=== PATIENT | female | born 1985 | race Caucasian/White ===

== ENCOUNTER 2020-06-08 09:26 | Outpatient (REF) | payer OTHER, SELFPAY ==
[2020-06-08 09:49] LABS: Basophils Absolute Auto 0.1 X10*3/uL (0.0-0.2); Basophils Percent Auto 0.7 % (0-2); Eosinophils Percent Auto 0.2 % (0-4); Hematocrit 43.9 % (37-47); Hemoglobin 14.7 g/dl (12.0-16.0); Imm Gran Abs Auto 0.03 X10*3/uL (0.00-0.03); Imm Gran Pct Auto 0.3 % (0.0-0.4); Lymphocytes Absolute Auto 1.9 X10*3/uL (1.2-4.9); Lymphocytes Percent Auto 17.9 % (20-40); MANUAL DIFF FLAG NO; Mean Corpuscular HGB Conc 33.5 g/dl (31.0-35.0); Mean Corpuscular Volume 83.6 fL (80-98); Mean Platelet Volume 8.8 fL (9.4-12.3); Monocytes Absolute Auto 0.3 X10*3/uL (0.1-1.2); Monocytes Percent Auto 3.2 % (2-11); Neutrophils Absolute Auto 8.3 X10*3/uL (2.0-8.3); Neutrophils Percent Auto 77.7 % (45-73); Platelet Count 339 X10*3/uL (160-400); Red Blood Count 5.25 X10*6/uL (4.20-5.50); Red Cell Distribution Width 12.5 % (11.0-16.0); White Blood Count 10.7 X10*3/uL (4.8-10.8)
[2020-06-08 10:39] LABS: Alanine Aminotransferase 14 U/L (0-31); Albumin Level 4.6 g/dL (3.5-5.0); Alkaline Phosphatase 74 U/L (39-117); Anion Gap 14 (12-20); Aspartate Amino Transferase 12 U/L (5-31); Bilirubin Total 1.1 mg/dL (0.0-1.0); Blood Urea Nitrogen 14 mg/dL (9-16); Calcium 9.8 mg/dL (8.4-10.2); Carbon Dioxide 24 mmol/L (22-29); Chloride 105 mmol/L (96-108); Cholesterol 194 mg/dL; Estimated Glomerular Filt Rate > 60; Glucose Fasting 123 mg/dL (60-99); HDL Cholesterol 56 mg/dL; LDL Cholesterol Calculated 117 mg/dl; Potassium 4.6 mmol/l (3.3-5.1); Sodium 138 mmol/L (135-145); Total Protein 7.4 g/dL (6.5-8.0); Triglycerides 105 mg/dL
[2020-06-08 11:00] LABS: T4 Thyroxine 9.2 ug/dL (4.5-12.0); Vitamin D 25-OH Total 30.4 ng/mL (>30)
[2020-06-08 11:14] LABS: Folate 19.1 ng/mL (> or = 4.0); Vitamin B12 420 pg/mL (200-900)
== END 2020-06-08 09:27 | disposition home or self-care (01) ==
LOC: HO.LAB 09:26
PROVIDERS: PCP Internal Medicine; Visit Provider Internal Medicine
DX: Z00.00 Encounter for general adult medical examination without abnormal findings (principal); F41.9 Anxiety disorder, unspecified; G43.909 Migraine, unspecified, not intractable, without status migrainosus; E66.9 Obesity, unspecified; G47.00 Insomnia, unspecified
CPT/HCPCS: 36415; 80053; 80061; 82306; 82533; 82607; 82746; 84436; 84443; 85025

== ENCOUNTER 2020-11-09 07:44 | Outpatient (REF) | payer OTHER, SELFPAY ==
--- NOTE | ~2020-11-09 | US_ITS ---
EXAMINATION: US ABDOMEN LIMITED CLINICAL INFORMATION: Other specified abnormal findings of blood chemistry. I flank pain. Evaluate for kidney stones. COMPARISON: Ultrasound abdomen complete 08/10/2018 and 09/13/2014. TECHNIQUE: Real-time imaging of the right upper quadrant abdominal viscera. FINDINGS: PANCREAS: Normal. LIVER: The liver is normal in size. The liver contour is normal. Parenchymal echogenicity is within normal limits. No focal hepatic lesion. There is no intrahepatic biliary duct dilatation seen. GALLBLADDER: Surgically absent. COMMON BILE DUCT: Normal in caliber measuring 0.3 cm in diameter. RIGHT KIDNEY: Normal. No hydronephrosis. No renal calculi or focal parenchymal lesions. The kidney measures 10.5 cm in maximum dimension. FREE FLUID: None. US/US abdomen limited IMPRESSION: Status post cholecystectomy. Otherwise normal right upper quadrant ultrasound. No right-sided hydronephrosis or nephrolithiasis.
[2020-11-09 09:13] LABS: MANUAL DIFF FLAG NO
[2020-11-09 09:26] LABS: Basophils Absolute Auto 0.1 X10*3/uL (0.0-0.2); Basophils Percent Auto 0.9 % (0-2); Eosinophils Absolute Auto 0.2 X10*3/uL (0.0-0.4); Hematocrit 39.6 % (37-47); Imm Gran Abs Auto 0.03 X10*3/uL (0.00-0.03); Imm Gran Pct Auto 0.4 % (0.0-0.4); Lymphocytes Absolute Auto 2.5 X10*3/uL (1.2-4.9); Lymphocytes Percent Auto 31.8 % (20-40); Mean Corpuscular HGB Conc 32.8 g/dl (31.0-35.0); Mean Corpuscular Hemoglobin 27.5 pg (27.0-33.0); Mean Corpuscular Volume 83.9 fL (80-98); Mean Platelet Volume 9.5 fL (9.4-12.3); Monocytes Absolute Auto 0.6 X10*3/uL (0.1-1.2); Monocytes Percent Auto 6.9 % (2-11); Neutrophils Absolute Auto 4.5 X10*3/uL (2.0-8.3); Platelet Count 313 X10*3/uL (160-400); Red Blood Count 4.72 X10*6/uL (4.20-5.50); Red Cell Distribution Width 13.1 % (11.0-16.0)
[2020-11-09 09:31] LABS: Alanine Aminotransferase 14 U/L (0-31); Albumin Level 4.2 g/dL (3.5-5.0); Alkaline Phosphatase 71 U/L (39-117); Anion Gap 13 (12-20); Aspartate Amino Transferase 14 U/L (5-31); Bilirubin Total 1.1 mg/dL (0.0-1.0); Blood Urea Nitrogen 10 mg/dL (9-16); Calcium 9.1 mg/dL (8.4-10.2); Carbon Dioxide 21 mmol/L (22-29); Chloride 108 mmol/L (96-108); Cholesterol 139 mg/dL; Estimated Glomerular Filt Rate > 60; Glucose Random 111 mg/dL (60-115); HDL Cholesterol 40 mg/dL; LDL Cholesterol Calculated 67 mg/dl; Potassium 4.4 mmol/L (3.3-5.1); Sodium 138 mmol/L (135-145); Total Protein 6.6 g/dL (6.5-8.0); Triglycerides 162 mg/dL
[2020-11-09 09:50] LABS: Glucose Urine UA NEG (NEG); Leukocyte Esterase Urine NEG (NEG); Nitrite Urine NEG (NEG); Specific Gravity - Urine >= 1.030 (1.005-1.025); Urine Blood TRACE (NEG); Urine Ketones NEG (NEG); Urine Protein NEG (NEG-TRACE)
[2020-11-09 09:53] LABS: Thyroid Stimulating Hormone 2.04 uIU/mL (0.32-4.0)
[2020-11-09 09:53] LABS: Appearance Urine HAZY; Color Urine YELLOW
[2020-11-09 09:54] LABS: Estimated Average Glucose 94 mg/dL; Hemoglobin A1c % 4.9 %
[2020-11-09 10:00] LABS: Bacteria Urine 3+ /LPF; RBC Urine 0-2 /HPF (0); Squamous Epithelial Cell Urine 2+ /LPF; WBC Urine 0-2 /HPF (0-4)
== END 2020-11-09 07:45 | disposition home or self-care (01) ==
LOC: HO.US 07:44
PROVIDERS: Visit Provider Internal Medicine
DX: R10.11 Right upper quadrant pain (principal); R79.89 Other specified abnormal findings of blood chemistry; R73.02 Impaired glucose tolerance (oral); E78.00 Pure hypercholesterolemia, unspecified
CPT/HCPCS: 36415; 76705; 80053; 80061; 81001; 83036; 84443; 85025

== ENCOUNTER 2021-04-23 08:32 | Outpatient (REF) | payer OTHER, SELFPAY ==
--- NOTE | ~2021-04-23 | XR_ITS ---
EXAMINATION: XR ANKLE, LEFT XR, FOOT, LEFT CLINICAL INFORMATION: Trauma, sprain, pain COMPARISON: None TECHNIQUE: 2 views left ankle and 2 views of the left foot are obtained. A lateral view of the combined ankle and foot in large [id number] is also included for a total of 5 views. FINDINGS: The ankle shows no fracture or dislocation or arthropathy. The malleoli appear intact and the ankle mortise is symmetric. Talar dome shows no osteochondral lesion or visible capsular effusion. The retrocalcaneal recess is preserved. There are posterior and plantar calcaneal spurs. Subtalar joint not well visualized likely related to patient positioning. There is mild spurring from the proximal dorsal talonavicular. The midfoot and forefoot show no fracture or dislocation or arthropathy. XR/XR ankle LT min 3V IMPRESSION: No fracture, dislocation, or arthropathy. Posterior and plantar calcaneal spurs.
--- NOTE | ~2021-04-23 | XR_ITS ---
EXAMINATION: XR ANKLE, LEFT XR, FOOT, LEFT CLINICAL INFORMATION: Trauma, sprain, pain COMPARISON: None TECHNIQUE: 2 views left ankle and 2 views of the left foot are obtained. A lateral view of the combined ankle and foot in large [id number] is also included for a total of 5 views. FINDINGS: The ankle shows no fracture or dislocation or arthropathy. The malleoli appear intact and the ankle mortise is symmetric. Talar dome shows no osteochondral lesion or visible capsular effusion. The retrocalcaneal recess is preserved. There are posterior and plantar calcaneal spurs. Subtalar joint not well visualized likely related to patient positioning. There is mild spurring from the proximal dorsal talonavicular. The midfoot and forefoot show no fracture or dislocation or arthropathy. XR/XR foot LT min 3V IMPRESSION: No fracture, dislocation, or arthropathy. Posterior and plantar calcaneal spurs.
== END 2021-04-23 08:33 | disposition home or self-care (01) ==
LOC: HO.HMGCX 08:32
PROVIDERS: PCP Internal Medicine; Visit Provider Internal Medicine
DX: S93.402A Sprain of unspecified ligament of left ankle, initial encounter (principal); X58.XXXA Exposure to other specified factors, initial encounter; Y93.9 Activity, unspecified; Y92.9 Unspecified place or not applicable; Y99.9 Unspecified external cause status
CPT/HCPCS: 73610; 73630

== ENCOUNTER 2021-09-24 12:13 | Outpatient (REF) | payer OTHER, SELFPAY ==
[2021-09-24 12:33] LABS: MANUAL DIFF FLAG NO
[2021-09-24 12:58] LABS: Basophils Absolute Auto 0.1 X10*3/uL (0.0-0.2); Basophils Percent Auto 0.6 % (0-2); Eosinophils Absolute Auto 0.1 X10*3/uL (0.0-0.4); Eosinophils Percent Auto 0.7 % (0-4); Hematocrit 40.8 % (37.0-47.0); Hemoglobin 13.3 g/dl (12.0-16.0); Imm Gran Abs Auto 0.02 X10*3/uL (0.00-0.03); Imm Gran Pct Auto 0.2 % (0.0-0.4); Lymphocytes Absolute Auto 1.9 X10*3/uL (1.2-4.9); Lymphocytes Percent Auto 19.3 % (20-40); Mean Corpuscular HGB Conc 32.6 g/dl (31.0-35.0); Mean Corpuscular Hemoglobin 29.7 pg (27.0-33.0); Mean Corpuscular Volume 91.1 fL (80.0-98.0); Mean Platelet Volume 9.4 fL (9.4-12.3); Monocytes Absolute Auto 0.5 X10*3/uL (0.1-1.2); Monocytes Percent Auto 5.1 % (2-11); Neutrophils Absolute Auto 7.3 x10*3/uL (2.0-8.3); Neutrophils Percent Auto 74.1 % (45-73); Platelet Count 338 X10*3/uL (160-400); Red Blood Count 4.48 X10*6/uL (4.20-5.50); Red Cell Distribution Width 13.2 % (11.0-16.0); White Blood Count 9.9 X10*3/uL (4.8-10.8)
[2021-09-24 13:23] LABS: Alanine Aminotransferase 12 U/L (0-31); Albumin Level 4.2 g/dL (3.5-5.0); Alkaline Phosphatase 72 U/L (39-117); Anion Gap 12 (12-20); Aspartate Amino Transferase 14 U/L (5-31); Bilirubin Total 0.9 mg/dL (0.0-1.0); Blood Urea Nitrogen 10 mg/dL (9-16); Calcium 9.8 mg/dL (8.4-10.2); Carbon Dioxide 24 mmol/L (22-29); Chloride 107 mmol/L (96-108); Estimated Glomerular Filt Rate > 60; Glucose Random 96 mg/dL (60-115); Potassium 4.7 mmol/L (3.3-5.1); Sodium 138 mmol/L (135-145); Total Protein 6.8 g/dL (6.5-8.0)
== END 2021-09-24 12:14 | disposition home or self-care (01) ==
LOC: HO.LAB 12:13
PROVIDERS: PCP Internal Medicine; Visit Provider Internal Medicine
DX: L70.9 Acne, unspecified (principal)
CPT/HCPCS: 36415; 80053; 85025

== ENCOUNTER 2021-12-24 07:47 | Outpatient (REF) | payer OTHER, SELFPAY ==
[2021-12-24 08:12] LABS: MANUAL DIFF FLAG NO
[2021-12-24 08:21] LABS: Basophils Absolute Auto 0.1 X10*3/uL (0.0-0.2); Basophils Percent Auto 0.8 % (0-2); Eosinophils Absolute Auto 0.1 X10*3/uL (0.0-0.4); Eosinophils Percent Auto 0.9 % (0-4); Hematocrit 38.5 % (37.0-47.0); Hemoglobin 12.8 g/dl (12.0-16.0); Imm Gran Abs Auto 0.03 X10*3/uL (0.00-0.03); Imm Gran Pct Auto 0.3 % (0.0-0.4); Lymphocytes Percent Auto 32.6 % (20-40); Mean Corpuscular HGB Conc 33.2 g/dl (31.0-35.0); Mean Corpuscular Hemoglobin 29.3 pg (27.0-33.0); Mean Corpuscular Volume 88.1 fL (80.0-98.0); Mean Platelet Volume 8.9 fL (9.4-12.3); Monocytes Absolute Auto 0.7 X10*3/uL (0.1-1.2); Monocytes Percent Auto 7.4 % (2-11); Neutrophils Absolute Auto 5.4 x10*3/uL (2.0-8.3); Platelet Count 318 X10*3/uL (160-400); Red Blood Count 4.37 X10*6/uL (4.20-5.50); White Blood Count 9.3 X10*3/uL (4.8-10.8)
[2021-12-24 08:42] LABS: Alanine Aminotransferase 16 U/L (0-31); Albumin Level 4.5 g/dL (3.5-5.0); Alkaline Phosphatase 67 U/L (39-117); Anion Gap 14 (12-20); Aspartate Amino Transferase 16 U/L (5-31); Bilirubin Total 2.1 mg/dL (0.0-1.0); Blood Urea Nitrogen 16 mg/dL (9-16); Calcium 9.4 mg/dL (8.4-10.2); Carbon Dioxide 23 mmol/L (22-29); Chloride 104 mmol/L (96-108); Estimated Glomerular Filt Rate > 60; Glucose Random 90 mg/dL (60-115); Potassium 3.9 mmol/L (3.3-5.1); Sodium 137 mmol/L (135-145)
[2021-12-24 09:05] LABS: Free T4 (Free Thyroxine) 1.41 ng/dL (0.71-1.85); Thyroid Stimulating Hormone 1.91 uIU/mL (0.32-4.0)
== END 2021-12-24 07:48 | disposition home or self-care (01) ==
LOC: HO.LAB 07:47
PROVIDERS: PCP Internal Medicine; Visit Provider Internal Medicine
DX: L70.9 Acne, unspecified (principal)
CPT/HCPCS: 36415; 80053; 84439; 84443; 85025

== ENCOUNTER 2022-02-25 07:21 | Outpatient (REF) | payer OTHER, SELFPAY ==
[2022-02-25 07:33] LABS: MANUAL DIFF FLAG NO
[2022-02-25 08:10] LABS: Basophils Absolute Auto 0.1 X10*3/uL (0.0-0.2); Basophils Percent Auto 0.9 % (0-2); Eosinophils Absolute Auto 0.2 X10*3/uL (0.0-0.4); Eosinophils Percent Auto 1.9 % (0-4); Hematocrit 41.2 % (37.0-47.0); Hemoglobin 13.5 g/dl (12.0-16.0); Imm Gran Abs Auto 0.03 X10*3/uL (0.00-0.03); Imm Gran Pct Auto 0.3 % (0.0-0.4); Lymphocytes Absolute Auto 2.9 X10*3/uL (1.2-4.9); Lymphocytes Percent Auto 31.3 % (20-40); Mean Corpuscular HGB Conc 32.8 g/dl (31.0-35.0); Mean Corpuscular Volume 88.6 fL (80.0-98.0); Monocytes Absolute Auto 0.6 X10*3/uL (0.1-1.2); Neutrophils Absolute Auto 5.3 x10*3/uL (2.0-8.3); Neutrophils Percent Auto 58.6 % (45-73); Platelet Count 326 X10*3/uL (160-400); Red Blood Count 4.65 X10*6/uL (4.20-5.50); Red Cell Distribution Width 13.2 % (11.0-16.0); White Blood Count 9.1 X10*3/uL (4.8-10.8)
[2022-02-25 08:48] LABS: Alanine Aminotransferase 15 U/L (0-31); Albumin Level 4.3 g/dL (3.5-5.0); Alkaline Phosphatase 67 U/L (39-117); Anion Gap 16 (12-20); Aspartate Amino Transferase 13 U/L (5-31); Bilirubin Direct 0.3 mg/dL (0.0-0.5); Bilirubin Total 0.9 mg/dL (0.0-1.0); Blood Urea Nitrogen 10 mg/dL (9-16); Calcium 9.2 mg/dL (8.4-10.2); Carbon Dioxide 24 mmol/L (22-29); Chloride 102 mmol/L (96-108); Estimated Glomerular Filt Rate > 60; Glucose Random 98 mg/dL (60-115); Lactate Dehydrogenase 156 U/L (122-220); Potassium 4.6 mmol/L (3.3-5.1); Sodium 137 mmol/L (135-145); Total Protein 6.8 g/dL (6.5-8.0)
[2022-02-27 14:42] LABS: Haptoglobin 173 mg/dL (43-212)
== END 2022-02-25 07:22 | disposition home or self-care (01) ==
LOC: HO.LAB 07:21
PROVIDERS: PCP Internal Medicine; Visit Provider Internal Medicine
DX: E80.6 Other disorders of bilirubin metabolism (principal); R79.89 Other specified abnormal findings of blood chemistry
CPT/HCPCS: 36415; 80053; 82248; 83010; 83615; 85025

== ENCOUNTER 2022-03-18 13:04 | Outpatient (REF) | payer OTHER, SELFPAY ==
--- NOTE | ~2022-03-18 | CT_ITS ---
EXAMINATION: CT OF THE HEAD WITHOUT CONTRAST CLINICAL INFORMATION: Headache COMPARISON: None. TECHNIQUE: Contiguous axial imaging was performed from the skull base to vertex without intravenous administration of contrast. This CT examination was performed using dose optimization techniques as appropriate, variously including the following: *Automated exposure control *Adjustment of mA and/or kV according to patient size (this includes techniques or standardized protocols for targeted exams where dose is matched to indication/reason for exam; i.e. extremities or head) *Use of iterative reconstruction technique [id number] FINDINGS: There is streak artifact in the posterior fossa particularly in the region of the basilar artery. No acute intracranial hemorrhage. No extra-axial fluid collection. Monroe-white matter differentiation is preserved without evidence of acute large vessel territory ischemia. Symmetric, concordant ventricles and sulci; no hydrocephalus. No mass effect or midline shift. There is no abnormal attenuation within the brain parenchyma. The osseous structures and soft tissues are normal. No acute sinusitis. CT/CT head/brain wo IV con IMPRESSION: No acute intracranial pathology.
--- NOTE | ~2022-03-18 | XR_ITS ---
EXAMINATION: XR CERVICAL SPINE CLINICAL INFORMATION: Headache, unspecified COMPARISON: None TECHNIQUE: 3 views of the cervical spine were obtained. FINDINGS: There is anatomic alignment of the vertebral bodies and posterior elements. Vertebral body heights and intervertebral disc spaces are maintained. No evidence of acute fracture. No prevertebral soft tissue swelling. XR/XR cervical spine 2V IMPRESSION: No acute findings or significant degenerative changes.
== END 2022-03-18 13:05 | disposition home or self-care (01) ==
LOC: HO.CT 13:04
PROVIDERS: PCP Internal Medicine; Visit Provider Internal Medicine
DX: R51.9 Headache, unspecified (principal)
CPT/HCPCS: 70450; 72040

== ENCOUNTER 2022-10-03 09:33 | Outpatient (REF) | payer OTHER, SELFPAY ==
--- NOTE | ~2022-10-03 | US_ITS ---
EXAMINATION: US ABDOMEN COMPLETE CLINICAL INFORMATION: Other specified abnormal findings of blood chemistry. COMPARISON: Limited abdominal ultrasound 11/09/2020. Ultrasound abdomen 08/10/2018. TECHNIQUE: Real-time imaging of the abdominal viscera. FINDINGS: PANCREAS: The pancreas appears unremarkable, without masses or ductal dilatation, with the exception of the tail which is obscured by bowel gas. ABDOMINAL AORTA: The proximal, mid, and distal segments are normal in caliber. INFERIOR VENA CAVA: Visualized portions are normal. LIVER: The liver is normal in size. The liver contour is normal. There is diffuse increased liver parenchymal echogenicity, consistent with hepatic steatosis. No focal hepatic lesion. There is no intrahepatic biliary duct dilatation seen. GALLBLADDER: Surgically absent. COMMON BILE DUCT: Normal in caliber measuring 0.4 cm in diameter. RIGHT KIDNEY: Normal. No hydronephrosis. No renal calculi or focal parenchymal lesions. The kidney measures 11.1 cm in maximum dimension. LEFT KIDNEY: Normal. No hydronephrosis. No renal calculi or focal parenchymal lesions. The kidney measures 9.7 cm in maximum dimension. SPLEEN: Normal.The spleen measures 8.8 cm in maximum dimension. FREE FLUID: None. US/US abdomen complete IMPRESSION: Hepatic steatosis.
== END 2022-10-03 09:34 | disposition home or self-care (01) ==
LOC: HO.US 09:33
PROVIDERS: PCP Internal Medicine; Visit Provider Internal Medicine
DX: R79.89 Other specified abnormal findings of blood chemistry (principal); Z90.49 Acquired absence of other specified parts of digestive tract
CPT/HCPCS: 76700

== ENCOUNTER 2023-02-27 20:44 | Emergency (ER) | payer OTHER, SELFPAY ==
--- NOTE | 2023-02-27 20:46 | ECG_ITS ---
Test Reason : CP Blood Pressure : / mmHG Vent. Rate : 068 BPM Atrial Rate : 068 BPM P-R Int : 152 ms QRS Dur : 072 ms QT Int : 388 ms P-R-T Axes : 044 -10 -29 degrees QTc Int : 412 ms Normal sinus rhythm with sinus arrhythmia Nonspecific T wave abnormality Abnormal ECG No previous ECGs available Referred By: Deja Adan Electronically Signed By:Micheal Ramirez
[2023-02-27 21:26] VITALS: BP 129/99; PULSE 79; RESP 18; TEMP 36.8; O2SAT 98; BMI 31.9
[2023-02-27 22:12] LABS: MANUAL DIFF FLAG NO
[2023-02-27 22:16] LABS: Basophils Absolute Auto 0.1 X10*3/uL (0.0-0.2); Basophils Percent Auto 0.7 % (0-2); Eosinophils Absolute Auto 0.1 X10*3/uL (0.0-0.4); Eosinophils Percent Auto 0.9 % (0-4); Hematocrit 45.1 % (37.0-47.0); Hemoglobin 15.2 g/dl (12.0-16.0); Imm Gran Abs Auto 0.03 X10*3/uL (0.00-0.03); Imm Gran Pct Auto 0.3 % (0.0-0.4); Lymphocytes Absolute Auto 2.6 X10*3/uL (1.2-4.9); Lymphocytes Percent Auto 26.7 % (20-40); Mean Corpuscular HGB Conc 33.7 g/dl (31.0-35.0); Mean Corpuscular Hemoglobin 29.6 pg (27.0-33.0); Mean Corpuscular Volume 87.7 fL (80.0-98.0); Mean Platelet Volume 9.2 fL (9.4-12.3); Monocytes Absolute Auto 0.7 X10*3/uL (0.1-1.2); Monocytes Percent Auto 6.7 % (2-11); Neutrophils Absolute Auto 6.2 x10*3/uL (2.0-8.3); Neutrophils Percent Auto 64.7 % (45-73); Platelet Count 380 X10*3/uL (160-400); Red Blood Count 5.14 X10*6/uL (4.20-5.50); Red Cell Distribution Width 12.4 % (11.0-16.0); White Blood Count 9.6 X10*3/uL (4.8-10.8)
[2023-02-27 22:30] LABS: Alanine Aminotransferase 11 U/L (0-31); Albumin Level 4.7 g/dL (3.5-5.0); Alkaline Phosphatase 64 U/L (39-117); Anion Gap 13 (12-20); Aspartate Amino Transferase 14 U/L (5-31); Bilirubin Total 1.8 mg/dL (0.0-1.0); Blood Urea Nitrogen 13 mg/dL (9-16); Calcium 11.2 mg/dL (8.4-10.2); Carbon Dioxide 28 mmol/L (22-29); Chloride 103 mmol/L (96-108); Creatinine Clr Calc Pharmacy 80.2; Estimated Glomerular Filt Rate > 60; Glucose Random 98 mg/dL (60-115); Potassium 4.5 mmol/L (3.3-5.1); Sodium 139 mmol/L (135-145); Total Protein 7.8 g/dL (6.5-8.0)
[2023-02-27 22:36] LABS: D Dimer High Sensitivity < 150 NG/ML
[2023-02-27 22:43] LABS: Troponin-I High Sensitivity < 2.7 ng/L (<3.5-17.0)
[2023-02-27 23:31] VITALS: BP 152/96; PULSE 85; RESP 16; TEMP 36.8; O2SAT 100
--- NOTE | 2023-02-28 00:35 | ED.CHESTPAIN ---
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 complaining of calf pain worried about that she might have PE on arrival patient pulse ox 100% at room air patient is on control pills and worried that she might have PE no cough Related Data Home Medications Medication Instructions Recorded Confirmed albuterol sulfate 90 mcg/actuation 2 puff PO QID PRN 06/07/20 02/25/22 aerosol inhaler norethindrone (contraceptive) 0.35 0 mg PO 05/05/21 02/25/22 mg tablet (Incassia) Previous Rx's Medication Instructions Recorded cholestyramine-aspartame 4 gram 4 g PO QIDACHS #60 ea 03/05/21 oral powder for susp in a packet (Prevalite) sumatriptan succinate 50 mg tablet 50 mg PO .QD PRN migraine headache 03/15/21 (Imitrex) #14 tabs eflornithine 13.9 % topical cream 1 appl topical BID #45 grams 09/25/21 (Vaniqa) magnesium oxide 400 mg PO DAILY #30 tabs 05/28/22 polymyxin B sulfate 10,000 1 drp ophthalmic-Left Q3H 7 days 05/28/22 unit-trimethoprim 1 mg/mL eye #10 mL drops (Polytrim) erythromycin 5 mg/gram (0.5 %) eye 0.5 inch ophthalmic (eye) TID #3.5 05/30/22 ointment grams tobramycin 0.3 %-dexamethasone 0.1 1 drp ophthalmic (eye) 6XD #5 mL 05/30/22 % eye drops,suspension metformin 500 mg tablet 500 mg PO BID 90 days #180 tabs 07/03/22 alprazolam 0.25 mg tablet 0.25 mg PO DAILY PRN anxiety #14 08/26/22 tabs valacyclovir 500 mg tablet 500 mg PO DAILY 30 days #90 tabs 03/09/23 propranolol 10 mg tablet 10 mg PO BID #180 tabs 11/03/22 spironolactone 100 mg tablet 100 mg PO DAILY 30 days #90 tabs 11/03/22 zolpidem 5 mg tablet 5 mg PO BEDTIME PRN insomnia 30 02/21/23 days #30 tabs prochlorperazine maleate 10 mg 10 mg PO TID PRN nausea and 02/28/23 tablet (Compazine) vomiting #10 tabs Allergies Allergy/AdvReac Type Severity Reaction Status Date / Time adhesive [ADHESIVE] Allergy Unknown RED RASH Verified 12/13/22 10:09 ITCH minocycline [MINOCYCLINE] Allergy Unknown HIVES Verified 12/13/22 10:09 omeprazole [From Prilosec] Allergy Unknown headache Verified 12/13/22 10:09 Penicillins [PENICILLINS] Allergy Unknown HIVES Verified 12/13/22 10:09 ondansetron AdvReac Unknown HIVES Verified 12/13/22 10:09 [From ZOFRAN ( HYDROCHLORIDE)] Review of Systems Review of Systems: Yes all other systems are reviewed and are negative [facility] Past Medical History Medical History Anxiety Asthma Fatty liver Insomnia Migraine Obesity (BMI 30-39.9) PCOS (polycystic ovarian syndrome) Surgical History History of ankle surgery History of cholecystectomy History of hemorrhoidectomy History of placement of ear tubes History of wisdom tooth extraction Family History Family History Father Rock's disease Diabetes Hypertension Depression Mother No problems noted. Maternal Grandmother Cancer Depression Leukemia Maternal Grandfather Atherosclerosis CAD (coronary artery disease) Family/Other Alcoholism Social History Social History Housing: House Alcohol intake: current Alcohol intake frequency: holidays/special occasions only Patient Tobacco Use Status: Never used Tobacco e-Cigarette/Vaping Use: Never Used Second Hand Smoke Exposure: No Advance Directives: No Advance Directives Information Provided: Yes service: No Current occupational status: employed Cognitive needs: No Hearing needs: No Vision needs: Yes Physical Exam Vital Signs: Vital Signs: Last Vital Signs Temp 98.6 F 02/28/23 00:38 Pulse 56 02/28/23 00:38 Resp 16 02/28/23 00:38 BP 144/99 H 02/28/23 00:38 Pulse Ox 100 02/27/23 23:31 O2 Del Method Room Air 02/28/23 00:38 BMI result Body Mass Index 31.9 Appearance: Alert. Oriented X3. No acute distress. Anxious Eyes: PERRLA, No Nystagmus ENT: Pharynx normal. Oral Mucosa moist Neck: Normal inspection. Neck supple. CVS: Normal heart rate and rhythm. Pulses normal. Respiratory: No respiratory distress. Equal air entry bilateral, no wheezing/rales/rhonchi Abdomen: Soft and nontender. Bowel sounds are present, no mass palpable, no CVA tenderness Skin: Skin warm and dry. Normal skin color. Normal skin turgor. Extremities: No lower extremity edema. No calf tenderness Neuro: Oriented X 3. No motor deficit. No sensory deficit.No cerebellar signs , cranial nerves II-XII intact Medical Decision Making Medical Decision Making MDM Narrative: Patient with atypical chest pain for last 5 days normal EKG normal troponin normal high sensitive D-dimer clinically patient seems very anxious multiple complaints patient advised to follow with PCP/cardiology/licensed vocational nurse Differential Diagnosis Differential Diagnoses: The differential diagnosis associated with the presentation includes ACS/PE/anxiety/GERD Lab Data [facility] Lab Attestation statement: I reviewed the patient's lab results. 02/27/23 22:07 02/27/23 22:07 Labs: Lab Results 02/27/23 02/27/23 02/27/23 Range/Units 22:07 22:07 22:07 WBC 9.6 (4.8-10.8) X10*3/uL RBC 5.14 (4.20-5.50) X10*6/uL Hgb 15.2 (12.0-16.0) g/dl Hct 45.1 (37.0-47.0) % MCV 87.7 (80.0-98.0) fL MCH 29.6 (27.0-33.0) pg MCHC 33.7 (31.0-35.0) g/dl RDW 12.4 (11.0-16.0) % Plt Count 380 (160-400) X10*3/uL MPV 9.2 L (9.4-12.3) fL Immature Gran % (Auto) 0.3 (0.0-0.4) % Neut % (Auto) 64.7 (45-73) % Lymph % (Auto) 26.7 (20-40) % Webb % (Auto) 6.7 (2-11) % Eos % (Auto) 0.9 (0-4) % Baso % (Auto) 0.7 (0-2) % Lymph # (Auto) 2.6 (1.2-4.9) X10*3/uL Webb # (Auto) 0.7 (0.1-1.2) X10*3/uL Eos # (Auto) 0.1 (0.0-0.4) X10*3/uL Baso # (Auto) 0.1 (0.0-0.2) X10*3/uL Abs Immat Gran (auto) 0.03 (0.00-0.03) X10*3/uL Absolute Neuts (auto) 6.2 (2.0-8.3) x10*3/uL Absolute Nucleated RBC 0.000 (0.0-0.012) X10*3/uL Nucleated RBC % (auto) 0.0 (0.0-0.2) /100WBC D-Dimer High Sensitivty < 150 NG/ML Sodium 139 (135-145) mmol/L Potassium 4.5 (3.3-5.1) mmol/L Chloride 103 (96-108) mmol/L Carbon Dioxide 28 (22-29) mmol/L Anion Gap 13 (12-20) BUN 13 (9-16) mg/dL Creatinine 1.00 (0.5-1.4) mg/dL Estim Creat Clear Calc 80.2 Estimated GFR > 60 Random Glucose 98 (60-115) mg/dL Calcium 11.2 H D (8.4-10.2) mg/dL Total Bilirubin 1.8 H (0.0-1.0) mg/dL AST 14 (5-31) U/L ALT 11 (0-31) U/L Alkaline Phosphatase 64 (39-117) U/L Troponin I High Sens (<3.5-17.0) ng/L Total Protein 7.8 (6.5-8.0) g/dL Albumin 4.7 (3.5-5.0) g/dL 02/27/23 Range/Units 22:07 WBC (4.8-10.8) X10*3/uL RBC (4.20-5.50) X10*6/uL Hgb (12.0-16.0) g/dl Hct (37.0-47.0) % MCV (80.0-98.0) fL MCH (27.0-33.0) pg MCHC (31.0-35.0) g/dl RDW (11.0-16.0) % Plt Count (160-400) X10*3/uL MPV (9.4-12.3) fL Immature Gran % (Auto) (0.0-0.4) % Neut % (Auto) (45-73) % Lymph % (Auto) (20-40) % Webb % (Auto) (2-11) % Eos % (Auto) (0-4) % Baso % (Auto) (0-2) % Lymph # (Auto) (1.2-4.9) X10*3/uL Webb # (Auto) (0.1-1.2) X10*3/uL Eos # (Auto) (0.0-0.4) X10*3/uL Baso # (Auto) (0.0-0.2) X10*3/uL Abs Immat Gran (auto) (0.00-0.03) X10*3/uL Absolute Neuts (auto) (2.0-8.3) x10*3/uL Absolute Nucleated RBC (0.0-0.012) X10*3/uL Nucleated RBC % (auto) (0.0-0.2) /100WBC D-Dimer High Sensitivty NG/ML Sodium (135-145) mmol/L Potassium (3.3-5.1) mmol/L Chloride (96-108) mmol/L Carbon Dioxide (22-29) mmol/L Anion Gap (12-20) BUN (9-16) mg/dL Creatinine (0.5-1.4) mg/dL Estim Creat Clear Calc Estimated GFR Random Glucose (60-115) mg/dL Calcium (8.4-10.2) mg/dL Total Bilirubin (0.0-1.0) mg/dL AST (5-31) U/L ALT (0-31) U/L Alkaline Phosphatase (39-117) U/L Troponin I High Sens < 2.7 (<3.5-17.0) ng/L Total Protein (6.5-8.0) g/dL Albumin (3.5-5.0) g/dL Independent Interpretation I performed an independent interpretation of an: EKG Interpretation: Now sinus rhythm heart rate is 68 beats per minute normal interval normal axis no acute ST-T no acute ischemia Discharge Plan Discharge Clinical Impression: Chest pain Patient Disposition: Home, Self-Care Instructions: Chest Pain (ED) Additional Instructions: Cause of the chest is not very clear, likely noncardiac Follow-up with PCP for further evaluation Follow-up with GI for reflux problem Compazine for nausea Prescriptions: New prochlorperazine maleate [Compazine] 10 mg tablet 10 mg PO TID PRN (Reason: nausea and vomiting) Qty: 10 0RF No Action Prevalite 4 gram powder in packet 4 g PO QIDACHS Qty: 60 4RF Rx Instructions: no meds 1 hr before/4-6 hr after dose metformin 500 mg tablet 500 mg PO BID 90 Days Qty: 180 3RF alprazolam 0.25 mg tablet 0.25 mg PO DAILY PRN (Reason: anxiety) Qty: 14 2RF valacyclovir 500 mg tablet 500 mg PO DAILY 30 Days Qty: 90 3RF propranolol 10 mg tablet 10 mg PO BID Qty: 180 2RF spironolactone 100 mg tablet 100 mg PO DAILY 30 Days Qty: 90 2RF zolpidem 5 mg tablet 5 mg PO BEDTIME PRN (Reason: insomnia) 30 Days Qty: 30 1RF albuterol sulfate 90 mcg/actuation HFA aerosol inhaler 2 puff PO QID PRN sumatriptan succinate [Imitrex] 50 mg tablet 50 mg PO .QD PRN (Reason: migraine headache) Qty: 14 3RF Rx Instructions: do not exceed 4 doses per 24 hrs norethindrone (contraceptive) [Incassia] 0.35 mg tablet 0 mg PO Vaniqa 13.9 % cream 1 appl topical BID Qty: 45 2RF Rx Instructions: space doses >= 8 hrs apart and at least 5 min after hair removal; avoid water for 4hr after any dose polymyxin B sulf-trimethoprim [Polytrim] 10,000 unit- 1 mg/mL drops 1 drp ophthalmic-Left Q3H 7 Days Qty: 10 0RF Rx Instructions: while awake; do not exceed 6 doses in 24 hours magnesium oxide 400 mg magnesium tablet 400 mg PO DAILY Qty: 30 0RF erythromycin 5 mg/gram (0.5 %) ointment 0.5 inch ophthalmic (eye) TID Qty: 3.5 0RF tobramycin-dexamethasone 0.3-0.1 % drops,suspension 1 drp ophthalmic (eye) 6XD Qty: 5 0RF Rx Instructions: while awake
[2023-02-28 00:38] VITALS: BP 144/99; PULSE 56; RESP 16; TEMP 37
[2023-02-28] MEDS: Prochlorperazine Maleate 5 MG TABLET 10 MG PO (01:35)
== END 2023-02-28 01:38 | disposition home or self-care (01) ==
PROVIDERS: Emergency Provider Internal Medicine; PCP Internal Medicine
DX: R07.89 Other chest pain (principal); R06.02 Shortness of breath; K76.0 Fatty (change of) liver, not elsewhere classified; Z79.899 Other long term (current) drug therapy
CPT/HCPCS: 36415; 80053; 84484; 85025; 85379; 93005; 99283; 99284

== ENCOUNTER → 2023-02-27 20:46 | Outpatient (BNV) | payer OTHER, SELFPAY | PROVIDERS: Emergency Provider Internal Medicine; PCP Internal Medicine; Visit Provider Internal Medicine Cardiovascular Disease | DX: R94.31 Abnormal electrocardiogram [ECG] [EKG] (principal) | CPT/HCPCS: 93010 ==

== ENCOUNTER 2023-03-21 11:15 | Outpatient (AMB) | payer OTHER, SELFPAY ==
[2023-03-21 11:28] VITALS: BP 126/82; PULSE 75; O2SAT 99; BMI 31.2
--- NOTE | 2023-03-21 11:28 | A.OFFPC_ITS ---
Vital Signs 03/21/23 11:28 Height 5 ft 4 in Weight 182 lb BMI 31.2 BP 126/82 Blood Pressure Location Lt brachial Position Sitting Pulse 75 Pulse Source Pulse Oximeter Pulse Oximetry (%) 99 Oxygen Delivery Method Room Air Intake Visit Reasons: NAVJOT Allergies adhesive [ADHESIVE] Allergy (Unknown, Verified 03/21/23 11:28) RED RASH ITCH minocycline [MINOCYCLINE] Allergy (Unknown, Verified 03/21/23 11:28) HIVES omeprazole [From Prilosec] Allergy (Unknown, Verified 03/21/23 11:28) headache Penicillins [PENICILLINS] Allergy (Unknown, Verified 03/21/23 11:28) HIVES ondansetron [From ZOFRAN ( HYDROCHLORIDE)] Adverse Reaction (Unknown, Verified 03/21/23 11:28) HIVES Medication List - Last Reconciled 03/21/23 by Deonna Lenz Po, albuterol sulfate 90 mcg/actuation 2 puffs PO QID PRN alprazolam 0.25 mg PO DAILY PRN cholestyramine-aspartame 4 gram (Prevalite) 4 grams PO QIDACHS eflornithine 13.9% (Vaniqa) 1 appl topical BID magnesium oxide 400 mg PO DAILY metformin 500 mg PO BID 90 days norethindrone (contraceptive) (Incassia) 0 mg PO prochlorperazine maleate (Compazine) 10 mg PO TID PRN propranolol 10 mg PO BID sumatriptan succinate (Imitrex) 50 mg PO .QD PRN valacyclovir 500 mg PO DAILY 30 days zolpidem 5 mg PO BEDTIME PRN 30 days Tobacco use date assessed: 12/13/22 Dental Screening Dental Screen Date: 03/21/23 Did you have a dental visit in the last 12 months?: Yes Did you have a dental problem in the last 6 months where you did not have access to dental care?: No Was dental information given to patient?: Patient has dentist HPI NAVJOT HPI Details 37-year-old obese female with a history of PCOS acne(which is treated with spironolactone) impaired glucose tolerance migraine and gentle as anxiety disorder last seen in November 2022. Patient had a near syncopal episode and noted to have had diarrhea plus the diuretic being taken causing it. Patient is here for follow-up. Review of the notes in 02/28/2023 patient was in the ER having epigastric pain radiating to the left chest for the last 5 days with shortness of breath workup was negative and discharged patient was given Compazine for nausea. Noted on the blood work having hypercalcemia. chest pain 5 days taking GI med tums , maalox, at home continuous burning radiating L arm no cough sob, over a week- change diet with no relief, has nausea, no v, after change 2 weeks feelign a little better. states R calf sore and doing a lot of travelling [facility] Medical History Anxiety Asthma Fatty liver Insomnia Migraine Obesity (BMI 30-39.9) PCOS (polycystic ovarian syndrome) Surgical History History of ankle surgery History of cholecystectomy History of hemorrhoidectomy History of placement of ear tubes History of wisdom tooth extraction Family History Father Monroe's disease Diabetes Hypertension Depression Mother No problems noted. Maternal Grandmother Cancer Depression Leukemia Maternal Grandfather Atherosclerosis CAD (coronary artery disease) Family/Other Alcoholism Social History Housing: House Alcohol intake: current Alcohol intake frequency: holidays/special occasions only Patient Tobacco Use Status: Never used Tobacco e-Cigarette/Vaping Use: Never Used Second Hand Smoke Exposure: No service: No Current occupational status: employed Cognitive needs: No Hearing needs: No Vision needs: Yes Questionnaire PHQ-9 Over the last 2 weeks, how often have you been bothered by any of the following problems? 1. Little interest or pleasure in doing things: not at all 2. Feeling down, depressed, or hopeless: not at all 3. Trouble falling or staying asleep, or sleeping too much: not at all 4. Feeling tired or having little energy: not at all 5. Poor appetite or overeating: not at all 6. Feeling bad about yourself - or that you are a failure or have let yourself or your family down: not at all 7. Trouble concentrating on things, such as reading the newspaper or watching television: not at all 8. Moving or speaking so slowly that other people could have noticed. Or the opposite - being so fidgety or restless that you have been moving around a lot more than usual: not at all 9. Thoughts that you would be better off or of hurting yourself in some way: not at all Total score: 0 Depression Screening Interpretation: Negative Source: Developed by Drs. Jeet Rosales, Mariah Mayen, Nilesh Siddiqui and colleagues, with an educational nehemiah from [email or web address]. Thrive Questionnaire Date Thrive assessed: 09/11/22 AUDIT C Alcohol Use Questionnaire (AUDIT-C) 1. How often do you have a drink containing alcohol?: Monthly or less 2. How many drinks containing alcohol do you have on a typical day when you are drinking?: 1 or 2 3. How often do you have six or more drinks on one occasion?: Never Total Score: 1 NAVJOT-7 AMB Questionnaire NAVJOT-7 Date NAVJOT - 7 assessed: 09/11/22 Source: Developed by Drs. Jeet Rosales, Mariah Mayen, Nilesh Siddiqui and colleagues, with an educational nehemiah from [email or web address]. Physical exam (Primary Care) Vital Signs: Last Vital Signs BP 182/8 H 03/21/23 11:28 Oxygen Delivery Method Room Air 03/21/23 11:28 Care Plan Goal for BP management: Mild chest tenderness on palpation on the left subcostal margins. Tobacco/Smoking Status: Tobacco use Status Tobacco use date assessed 12/13/22 12/13/22 10:15 Patient Tobacco Use Status Never used Tobacco 12/13/22 10:09 e-Cigarette/Vaping Use Never Used 12/13/22 10:09 Depression Screening Interpretation: Negative Thrive Assessment: Date of Thrive Assessment Date Thrive assessed 09/11/22 12/13/22 10:09 Const General: alert; No acute distress Eyes Conjunctivae: conjunctivae normal Resp Auscultation: clear to auscultation bilaterally Cardio Rate: regular rate Rhythm: regular rhythm GI Inspection: Yes normal to inspection Extrem General: Yes normal to inspection and No edema Assessment and Plan Assessment & Plan (1) Generalized anxiety disorder: Comment: decline referral for counselling for now 11/2022 Code(s): F41.1 - Generalized anxiety disorder Plan: Continue alprazolam as needed (2) Hypercalcemia: Code(s): E83.52 - Hypercalcemia Plan: Will have to repeat the blood work patient has been taking in a lot of Tums. (3) Acne: Code(s): L70.9 - Acne, unspecified Plan: Patient is on spironolactone but will stop this due to side effects (4) Impaired glucose tolerance: Code(s): R73.02 - Impaired glucose tolerance (oral) Plan: Decrease the amount of carbohydrate intake, pasta, bread, rice and potatoes are all sugar and that is aside from all the sweet stuff, remember that fruits are good but they are Sweet also. Placed on metformin 500 mg twice a day (5) Migraine: Code(s): G43.909 - Migraine, unspecified, not intractable, without status migrainosus Qualifiers: Intractability: not intractable Migraine type: without aura Status migrainosus presence: without status migrainosus Qualified Code(s): G43.009 - Migraine without aura, not intractable, without status migrainosus Plan: Keep well hydrated keep active (6) Obesity (BMI 30-39.9): Code(s): E66.9 - Obesity, unspecified Plan: Diet and exercise (7) GERD (gastroesophageal reflux disease): Code(s): K21.9 - Gastro-esophageal reflux disease without esophagitis Plan: Avoid the foods that causes that usually spicy foods, tomato products, juices, coffee, soda and foods that your sensitive to. After eating do not lie down, allow 3-4 hours before in lie down. And keep the head of bed above 30 degrees to avoid the acid from going up. Patient advised to take Nexium q.day (8) Costochondritis: Code(s): M94.0 - Chondrocostal junction syndrome [Tietze] Plan: Reassurance Orders: Orders Calcium, Ionized Today E83.52 - Hypercalcemia Comprehensive Met. Panel Today E83.52 - Hypercalcemia PTHI Today E83.52 - Hypercalcemia Magnesium Today E83.42 - Hypomagnesemia Phosphorus Today E83.42 - Hypomagnesemia Medications: Refilled alprazolam 0.25 mg PO DAILY PRN 14 tabs 2RF anxiety F41.9 - Anxiety disorder, unspecified cholestyramine-aspartame 4 gram (Prevalite) no meds 1 hr before/4-6 hr after dose 4 grams PO QIDACHS 60 ea 4RF E83.52 - Hypercalcemia Discontinued erythromycin Discontinued Reason: Doctor's Order 0.5 inches ophthalmic (eye) TID 3.5 grams 0RF spironolactone Discontinued Reason: Ancillary Entered New Order 100 mg PO DAILY 30 days 90 tabs 2RF L70.9 - Acne, unspecified polymyxin B sulf-trimethoprim 10,000 unit- 1 mg/mL (Polytrim) while awake; do not exceed 6 doses in 24 hours Discontinued Reason: Doctor's Order 1 drp ophthalmic-Left Q3H 7 days 10 mL 0RF H10.32 - Unspecified acute conjunctivitis, left eye tobramycin-dexamethasone 0.3-0.1 % while awake Discontinued Reason: None 1 drp ophthalmic (eye) 6XD 5 mL 0RF Coding Level of Care Code Est Pt Level 4 (28865) Diagnoses Generalized anxiety disorder F41.1 Hypercalcemia E83.52 Acne L70.9 Impaired glucose tolerance R73.02 Migraine G43.009 Intractability: not intractable Migraine type: without aura Status migrainosus presence: without status migrainosus Obesity (BMI 30-39.9) E66.9 GERD (gastroesophageal reflux disease) K21.9 Costochondritis M94.0
== END 2023-03-21 12:04 | disposition home or self-care (01) ==
PROVIDERS: PCP Internal Medicine; Visit Provider Internal Medicine
DX: G43.009 Migraine without aura, not intractable, without status migrainosus (principal); E83.52 Hypercalcemia; K21.9 Gastro-esophageal reflux disease without esophagitis; F41.1 Generalized anxiety disorder; L70.9 Acne, unspecified; R73.02 Impaired glucose tolerance (oral); E66.9 Obesity, unspecified; M94.0 Chondrocostal junction syndrome [Tietze]
CPT/HCPCS: 99214

== ENCOUNTER 2023-03-27 08:24 | Outpatient (REF) | payer OTHER, SELFPAY ==
[2023-03-27 09:05] LABS: Alanine Aminotransferase 13 U/L (0-31); Albumin Level 4.3 g/dL (3.5-5.0); Alkaline Phosphatase 57 U/L (39-117); Anion Gap 11 (12-20); Aspartate Amino Transferase 13 U/L (5-31); Bilirubin Total 1.1 mg/dL (0.0-1.0); Blood Urea Nitrogen 12 mg/dL (9-16); Calcium 9.7 mg/dL (8.4-10.2); Carbon Dioxide 26 mmol/L (22-29); Chloride 108 mmol/L (96-108); Estimated Glomerular Filt Rate > 60; Glucose Random 99 mg/dL (60-115); Magnesium 1.8 mg/dL (1.6-2.6); Phosphorus 3.7 mg/dL (2.7-4.5); Potassium 3.8 mmol/L (3.3-5.1); Sodium 141 mmol/L (135-145); Total Protein 6.9 g/dL (6.5-8.0)
[2023-03-28 15:54] LABS: Calcium (PTHI) 9.3 mg/dL (8.6-10.2); PTHI 35 pg/mL (16-77)
[2023-04-02 19:03] LABS: Calcium, Ionized 5.2 mg/dL (4.7-5.5)
== END 2023-03-27 08:25 | disposition home or self-care (01) ==
LOC: HO.LAB 08:24
PROVIDERS: PCP Internal Medicine; Visit Provider Internal Medicine
DX: E83.42 Hypomagnesemia (principal); E83.52 Hypercalcemia
CPT/HCPCS: 36415; 80053; 82330; 83735; 83970; 84100

== ENCOUNTER 2023-04-28 16:26 | Outpatient (AMB) | payer OTHER, SELFPAY ==
--- NOTE | 2023-04-28 16:28 | MHC.PC.OV ---
Vital Signs 04/28/23 16:31 Height 5 ft 4 in Weight 183 lb BMI 31.4 BP 112/70 Blood Pressure Location Lt brachial Position Sitting Pulse 62 Pulse Source Pulse Oximeter Temp Source Skin Pulse Oximetry (%) 98 Oxygen Delivery Method Room Air Intake Visit Reasons: 6 week f/u Allergies adhesive [ADHESIVE] Allergy (Unknown, Verified 03/21/23 11:28) RED RASH ITCH minocycline [MINOCYCLINE] Allergy (Unknown, Verified 03/21/23 11:28) HIVES omeprazole [From Prilosec] Allergy (Unknown, Verified 03/21/23 11:28) headache Penicillins [PENICILLINS] Allergy (Unknown, Verified 03/21/23 11:28) HIVES ondansetron [From ZOFRAN ( HYDROCHLORIDE)] Adverse Reaction (Unknown, Verified 03/21/23 11:28) HIVES Medication List - Last Reconciled 04/28/23 by Deonna Lenz Po, albuterol sulfate 90 mcg/actuation 2 puffs PO QID PRN alprazolam 0.25 mg PO DAILY PRN cholestyramine-aspartame 4 gram (Prevalite) 4 grams PO QIDACHS eflornithine 13.9% (Vaniqa) 1 appl topical BID magnesium oxide 400 mg PO DAILY metformin 500 mg PO BID 90 days norethindrone (contraceptive) (Incassia) 0 mg PO prochlorperazine maleate (Compazine) 10 mg PO TID PRN propranolol 10 mg PO BID sumatriptan succinate (Imitrex) 50 mg PO .QD PRN valacyclovir 500 mg PO DAILY 30 days zolpidem 5 mg PO BEDTIME PRN 30 days Tobacco use date assessed: 04/28/23 Dental Screening Dental Screen Date: 04/28/23 Did you have a dental visit in the last 12 months?: Yes Did you have a dental problem in the last 6 months where you did not have access to dental care?: No Was dental information given to patient?: Patient has dentist HPI 6 week f/u HPI Details 37-year-old obese female with a history of migraine acne Megan anxiety disorder GERD impaired glucose tolerance last seen in March 2023. Patient was advised to repeat blood work due to hypercalcemia. Repeat blood work shows normal results. As for the acne patient is just doing conservative measures. With spironolactone being taken before patient has been dizzy and has been nauseous also. Noted weight gain and asking for shot once a week. Discussed about available medications and will try sending in script. 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 [facility] Medical History Anxiety Asthma Fatty liver Insomnia Migraine Obesity (BMI 30-39.9) PCOS (polycystic ovarian syndrome) Surgical History History of ankle surgery History of cholecystectomy History of hemorrhoidectomy History of placement of ear tubes History of wisdom tooth extraction Family History Father Rock's disease Diabetes Hypertension Depression Mother No problems noted. Maternal Grandmother Cancer Depression Leukemia Maternal Grandfather Atherosclerosis CAD (coronary artery disease) Family/Other Alcoholism Social History Housing: House Alcohol intake: current Alcohol intake frequency: holidays/special occasions only Patient Tobacco Use Status: Never used Tobacco e-Cigarette/Vaping Use: Never Used Second Hand Smoke Exposure: No service: No Current occupational status: employed Cognitive needs: No Hearing needs: No Vision needs: Yes Questionnaire Thrive Questionnaire Date Thrive assessed: 09/11/22 AUDIT C Alcohol Use Questionnaire (AUDIT-C) 1. How often do you have a drink containing alcohol?: Monthly or less 2. How many drinks containing alcohol do you have on a typical day when you are drinking?: 1 or 2 3. How often do you have six or more drinks on one occasion?: Never Total Score: 1 NAVJOT-7 AMB Questionnaire NAVJOT-7 Date NAVJOT - 7 assessed: 09/11/22 Source: Developed by Drs. Jeet Rosales, Mariah Mayen, Nilesh Siddiqui and colleagues, with an educational nehemiah from [employer]. Physical exam (Primary Care) Vital Signs: Last Vital Signs Pulse 62 04/28/23 16:31 BP 112/70 04/28/23 16:31 Pulse Ox 98 04/28/23 16:31 Oxygen Delivery Method Room Air 04/28/23 16:31 BMI result Body Mass Index 31.4 Tobacco/Smoking Status: Tobacco use Status Tobacco use date assessed 04/28/23 04/28/23 16:36 Patient Tobacco Use Status Never used Tobacco 04/28/23 16:29 e-Cigarette/Vaping Use Never Used 04/28/23 16:29 Thrive Assessment: Date of Thrive Assessment Date Thrive assessed 09/11/22 04/28/23 16:29 Const General: alert; No acute distress Eyes Conjunctivae: conjunctivae normal Resp Auscultation: clear to auscultation bilaterally Cardio Rate: regular rate Rhythm: regular rhythm GI Inspection: Yes normal to inspection Extrem General: Yes normal to inspection and No edema Office Procedures Flu Questionnaire Does the patient have a severe egg allergy?: No Does the patient have severe life threatening allergies?: No Does the patient have a fever or illness today?: No Has the patient ever had Guillain-[place] Syndrome?: No Has the patient ever had any past reaction to a flu shot?: No Results AMB Hemoglobin A1c AMB Hemoglobin A1c 5.2 % Last Edit by RAHEL Motta on 04/28/23 16:44 Immunizations flu vacc [id number] 6mos up(PF) 60 mcg(15 mcgx4)/0.5 mL IM syringe Performing Provider: Deonna Diaz MD [facility] Administered by: RAHEL Motta on 04/28/23 16:37 Dose Route Admin Location Dispensed Lot Number Expiration Date NDC Social Media Community Manager 0.5 mL IM Left Deltoid 0.5 mL [id number] 01/18/24 [id number] [employer] VIS Given Date VIS Provided VIS Publication Date 04/28/23 Single Vaccine 21 Eligibility Eligibility Date Funding Source Not [facility] Eligible 04/28/23 Private Assessment and Plan Assessment & Plan (1) GERD (gastroesophageal reflux disease): Code(s): K21.9 - Gastro-esophageal reflux disease without esophagitis Plan: Avoid the foods that causes that usually spicy foods, tomato products, juices, coffee, soda and foods that your sensitive to. After eating do not lie down, allow 3-4 hours before in lie down. And keep the head of bed above 30 degrees to avoid the acid from going up. (2) Hypercalcemia: Code(s): E83.52 - Hypercalcemia Plan: Resolved (3) Generalized anxiety disorder: Comment: decline referral for counselling for now 11/2022 Code(s): F41.1 - Generalized anxiety disorder (4) Hypomagnesemia: Code(s): E83.42 - Hypomagnesemia Plan: Resolved (5) Obesity (BMI 30-39.9): Code(s): E66.9 - Obesity, unspecified Plan: Diet and exercise. Will start on semaglutide (6) Right lateral epicondylitis: Code(s): M77.11 - Lateral epicondylitis, right elbow Plan: Discussed about treatment and options of orthopedic referral. Orders: Orders AMB Hemoglobin A1c Today Z13.9 - Encounter for screening, unspecified Influenza [id number] Immunization Today Z23 - Encounter for immunization Medications: New semaglutide (weight loss) (Wegovy) administer weeks 1 through 4 of therapy 0.25 mg (0.5 mL) subcut QWEEK 2 mL 2RF E66.9 - Obesity, unspecified Coding Level of Care Code Est Pt Level 4 (20272) Diagnoses GERD (gastroesophageal reflux disease) K21.9 Hypercalcemia E83.52 Generalized anxiety disorder F41.1 Hypomagnesemia E83.42 Obesity (BMI 30-39.9) E66.9 Right lateral epicondylitis M77.11
[2023-04-28 16:31] VITALS: BP 112/70; PULSE 62; O2SAT 98; BMI 31.4
== END 2023-04-28 16:56 | disposition home or self-care (01) ==
PROVIDERS: PCP Internal Medicine; Visit Provider Internal Medicine
DX: K21.9 Gastro-esophageal reflux disease without esophagitis (principal); E83.52 Hypercalcemia; F41.1 Generalized anxiety disorder; E83.42 Hypomagnesemia; Z23 Encounter for immunization; E66.9 Obesity, unspecified; M77.11 Lateral epicondylitis, right elbow
CPT/HCPCS: 83036; 90471; 90686; 99214

== ENCOUNTER 2023-08-12 16:02 | Outpatient (AMB) | payer OTHER, SELFPAY ==
[2023-08-12 16:06] VITALS: BP 118/70; PULSE 70; O2SAT 100; BMI 33.0
--- NOTE | 2023-08-12 16:06 | MHC.PC.OV ---
Vital Signs 08/12/23 16:06 Height 5 ft 4 in Weight 192 lb BMI 33.0 BP 118/70 Blood Pressure Location Lt brachial Position Sitting Pulse 70 Pulse Source Pulse Oximeter Temp Source Oral Pulse Oximetry (%) 100 Oxygen Delivery Method Room Air Intake Visit Reasons: 3 month f/u Air Conditioning Specialist Required: No Allergies adhesive [ADHESIVE] Allergy (Unknown, Verified 08/12/23 16:07) RED RASH ITCH minocycline [MINOCYCLINE] Allergy (Unknown, Verified 08/12/23 16:07) HIVES omeprazole [From Prilosec] Allergy (Unknown, Verified 08/12/23 16:07) headache Penicillins [PENICILLINS] Allergy (Unknown, Verified 08/12/23 16:07) HIVES ondansetron [From ZOFRAN ( HYDROCHLORIDE)] Adverse Reaction (Unknown, Verified 08/12/23 16:07) HIVES Medication List - Last Reconciled 08/12/23 by Deonna Lenz Po, albuterol sulfate 90 mcg/actuation 2 puffs PO QID PRN alprazolam 0.25 mg PO DAILY PRN cholestyramine-aspartame 4 gram (Prevalite) 4 grams PO QIDACHS eflornithine 13.9% (Vaniqa) 1 appl topical BID magnesium oxide 400 mg PO DAILY metformin 500 mg PO BID 90 days prochlorperazine maleate (Compazine) 10 mg PO TID PRN propranolol 10 mg PO BID sumatriptan succinate (Imitrex) 50 mg PO .QD PRN tirzepatide 5 mg (0.5 mL) subcut QWEEK 4 weeks valacyclovir 500 mg PO DAILY 30 days zolpidem 5 mg PO BEDTIME PRN 30 days Tobacco use date assessed: 08/12/23 Dental Screening Dental Screen Date: 08/12/23 Did you have a dental visit in the last 12 months?: Yes Did you have a dental problem in the last 6 months where you did not have access to dental care?: No Was dental information given to patient?: Patient has dentist HPI 3 month f/u HPI Details 37-year-old obese female with a history of GERD generalized anxiety disorder coming in for follow-up. Last seen in April 2023 review of the notes ER visit in May 2023 for abdominal pain/nausea vomiting diarrhea diagnosis of food poisoning patient had electrolyte problems placed on potassium metoclopramide hyoscyamine famotidine.. CT scan done of the abdomen showing left ovary complex cystic structure incidentally.. Patient has met with the gynecology and aware of the complex cyst and will continue to monitor. Otherwise patient has been doing good no more nausea no vomiting has some anxiety and was asking for hydroxyzine. Also has a new line of work coming and does not need the form filled out for the [place] disability. Patient has just started with Mounjaro and would like an increase in the dose. [facility] Medical History Anxiety Asthma Fatty liver Insomnia Migraine Obesity (BMI 30-39.9) PCOS (polycystic ovarian syndrome) Surgical History History of ankle surgery History of cholecystectomy History of hemorrhoidectomy History of placement of ear tubes History of wisdom tooth extraction Family History Father Whitingham's disease Diabetes Hypertension Depression Mother No problems noted. Maternal Grandmother Cancer Depression Leukemia Maternal Grandfather Atherosclerosis CAD (coronary artery disease) Family/Other Alcoholism Social History Housing: House Alcohol intake: current Alcohol intake frequency: holidays/special occasions only Patient Tobacco Use Status: Never used Tobacco e-Cigarette/Vaping Use: Never Used Second Hand Smoke Exposure: No service: No Current occupational status: employed Cognitive needs: No Hearing needs: No Vision needs: Yes Questionnaire Thrive Questionnaire Date Thrive assessed: 09/11/22 AUDIT C Alcohol Use Questionnaire (AUDIT-C) 1. How often do you have a drink containing alcohol?: Monthly or less 2. How many drinks containing alcohol do you have on a typical day when you are drinking?: 1 or 2 3. How often do you have six or more drinks on one occasion?: Never Total Score: 1 NAVJOT-7 AMB Questionnaire NAVJOT-7 Date NAVJOT - 7 assessed: 08/12/23 Source: Developed by Drs. Jeet Rosales, Mariah Mayen, Nilesh Siddiqui and colleagues, with an educational nehemiah from [employer]. Physical exam (Primary Care) Vital Signs: Last Vital Signs Pulse 70 08/12/23 16:06 BP 118/70 08/12/23 16:06 Pulse Ox 100 08/12/23 16:06 Oxygen Delivery Method Room Air 08/12/23 16:06 BMI result Body Mass Index 33.0 Tobacco/Smoking Status: Tobacco use Status Tobacco use date assessed 08/12/23 08/12/23 16:10 Patient Tobacco Use Status Never used Tobacco 08/12/23 16:10 e-Cigarette/Vaping Use Never Used 08/12/23 16:10 Thrive Assessment: Date of Thrive Assessment Date Thrive assessed 09/11/22 08/12/23 16:10 Const General: alert; No acute distress Eyes Conjunctivae: conjunctivae normal Resp Auscultation: clear to auscultation bilaterally Cardio Rate: regular rate Rhythm: regular rhythm GI Inspection: Yes normal to inspection Extrem General: Yes normal to inspection and No edema Assessment and Plan Assessment & Plan (1) Acute gastroenteritis: Code(s): K52.9 - Noninfective gastroenteritis and colitis, unspecified (2) Obesity (BMI 30-39.9): Code(s): E66.9 - Obesity, unspecified (3) Generalized anxiety disorder: Comment: decline referral for counselling for now 11/2022 Code(s): F41.1 - Generalized anxiety disorder (4) Complex ovarian cyst: Comment: Incidental results of CT scan May 2023 Code(s): N83.299 - Other ovarian cyst, unspecified side Plan: did see Gynecology- was told no worries Orders: Orders Complete Blood Count Auto Diff Today R73.02 - Impaired glucose tolerance (oral) Lipid Panel Today E78.00 - Pure hypercholesterolemia, unspecified, R73.02 - Impaired glucose tolerance (oral) Free T4 (Free Thyroxine) Today R73.02 - Impaired glucose tolerance (oral) Magnesium Today E83.42 - Hypomagnesemia Hemoglobin A1c Today R73.02 - Impaired glucose tolerance (oral) Comprehensive Met. Panel Today R73.02 - Impaired glucose tolerance (oral) Thyroid Stimulating Hormone Today R73.02 - Impaired glucose tolerance (oral) Vitamin B12 and Folate Today R73.02 - Impaired glucose tolerance (oral) UA w Microscopic Today R73.02 - Impaired glucose tolerance (oral) Vitamin D 25-OH Total Today R73.02 - Impaired glucose tolerance (oral) Medications: New hydroxyzine HCl 25 mg PO BEDTIME 30 tabs 2RF F41.1 - Generalized anxiety disorder Changed From tirzepatide (Mounjaro) 2.5 mg (0.5 mL) subcut QWEEK 4 weeks 2 mL 0RF To tirzepatide 5 mg (0.5 mL) subcut QWEEK 4 weeks 2 mL 2RF Discontinued prochlorperazine maleate (Compazine) Discontinued Reason: Doctor's Order 10 mg PO TID PRN 10 tabs 0RF nausea and vomiting Coding Level of Care Code Est Pt Level 4 (13525) Diagnoses Acute gastroenteritis K52.9 Obesity (BMI 30-39.9) E66.9 Generalized anxiety disorder F41.1 Complex ovarian cyst N83.299
== END 2023-08-12 16:46 | disposition home or self-care (01) ==
PROVIDERS: PCP Internal Medicine; Visit Provider Internal Medicine
DX: K52.9 Noninfective gastroenteritis and colitis, unspecified (principal); F41.1 Generalized anxiety disorder; N83.299 Other ovarian cyst, unspecified side
CPT/HCPCS: 99214

== ENCOUNTER 2023-11-01 09:00 | Outpatient (REF) | payer OTHER, SELFPAY ==
[2023-11-01 09:34] LABS: Basophils Absolute Auto 0.1 X10*3/uL (0.0-0.2); Basophils Percent Auto 0.8 % (0-2); Eosinophils Absolute Auto 0.1 X10*3/uL (0.0-0.4); Eosinophils Percent Auto 1.4 % (0-4); Hematocrit 42.1 % (37.0-47.0); Hemoglobin 14.2 g/dl (12.0-16.0); Imm Gran Abs Auto 0.02 X10*3/uL (0.00-0.03); Imm Gran Pct Auto 0.3 % (0.0-0.4); Lymphocytes Percent Auto 27.2 % (20-40); MANUAL DIFF FLAG NO; Mean Corpuscular HGB Conc 33.7 g/dl (31.0-35.0); Mean Corpuscular Hemoglobin 28.2 pg (27.0-33.0); Mean Corpuscular Volume 83.7 fL (80.0-98.0); Mean Platelet Volume 8.8 fL (9.4-12.3); Monocytes Absolute Auto 0.7 X10*3/uL (0.1-1.2); Monocytes Percent Auto 9.1 % (2-11); Neutrophils Absolute Auto 4.5 x10*3/uL (2.0-8.3); Neutrophils Percent Auto 61.2 % (45-73); Platelet Count 306 X10*3/uL (160-400); Red Blood Count 5.03 X10*6/uL (4.20-5.50); Red Cell Distribution Width 12.7 % (11.0-16.0); White Blood Count 7.3 X10*3/uL (4.8-10.8)
[2023-11-01 09:46] LABS: Estimated Average Glucose 97 mg/dL
[2023-11-01 09:53] LABS: Appearance Urine Clear; Color Urine Yellow; Glucose Urine UA Negative (Negative); Leukocyte Esterase Urine Negative (Negative); Nitrite Urine Negative (Negative); Urine Blood Negative (Negative); Urine Ketones Negative (Negative); Urine Protein Negative (Neg-Trace)
[2023-11-01 09:59] LABS: Bacteria Urine None Seen (None Seen); Hyaline Casts Urine 0-2 /LPF (0-2); RBC Urine 0-2 /HPF (0-2); WBC Urine 0-5 /HPF (0-5)
[2023-11-01 10:33] LABS: Alanine Aminotransferase 13 U/L (0-31); Albumin Level 4.4 g/dL (3.5-5.0); Alkaline Phosphatase 73 U/L (39-117); Anion Gap 12 (12-20); Aspartate Amino Transferase 11 U/L (5-31); Bilirubin Total 1.1 mg/dL (0.0-1.0); Blood Urea Nitrogen 14 mg/dL (9-16); Calcium 9.9 mg/dL (8.4-10.2); Carbon Dioxide 25 mmol/L (22-29); Chloride 105 mmol/L (96-108); Cholesterol 143 mg/dL (<200); Estimated Glomerular Filt Rate > 60; Glucose Random 94 mg/dL (60-115); HDL Cholesterol 43 mg/dL (>40); LDL Cholesterol Calculated 73 mg/dL (<100); Potassium 4.4 mmol/L (3.3-5.1); Sodium 138 mmol/L (135-145); Total Protein 7.3 g/dL (6.5-8.0); Triglycerides 138 mg/dL (<150)
[2023-11-01 10:46] LABS: Free T4 (Free Thyroxine) 1.16 ng/dL (0.71-1.85); Thyroid Stimulating Hormone 1.78 uIU/mL (0.32-4.0); Vitamin D 25-OH Total 25.9 ng/mL (>30)
[2023-11-01 10:54] LABS: Folate 10.7 ng/mL (> or = 4.0); Vitamin B12 568 pg/mL (200-900)
== END 2023-11-01 09:01 | disposition home or self-care (01) ==
LOC: HO.LAB 09:00
PROVIDERS: PCP Internal Medicine; Visit Provider Internal Medicine
DX: R73.02 Impaired glucose tolerance (oral) (principal); E83.42 Hypomagnesemia; E78.00 Pure hypercholesterolemia, unspecified
CPT/HCPCS: 36415; 80053; 80061; 81001; 82306; 82607; 82746; 83036; 83735; 84439; 84443; 85025

== ENCOUNTER 2023-11-14 15:28 | Outpatient (AMB) | payer OTHER, SELFPAY ==
--- NOTE | 2023-11-14 15:35 | MHC.PC.OV ---
Vital Signs 11/14/23 15:37 Height 5 ft 4 in Weight 190 lb 2 oz BMI 32.6 BP 110/64 Blood Pressure Location Lt brachial Position Sitting Pulse 63 Pulse Source Pulse Oximeter Pulse Oximetry (%) 98 Oxygen Delivery Method Room Air Intake Visit Reasons: 3mth f/u Intake Note: Patient is here to follow up on GERD, NAVJOT, Hypercalcemia. Promotions Coordinator Required: No Jack Frame Tender: Not Required per policy Accompanied by: Self / Same As Patient Allergies adhesive [ADHESIVE] Allergy (Unknown, Verified 11/14/23 15:37) RED RASH ITCH minocycline [MINOCYCLINE] Allergy (Unknown, Verified 11/14/23 15:37) HIVES omeprazole [From Prilosec] Allergy (Unknown, Verified 11/14/23 15:37) headache Penicillins [PENICILLINS] Allergy (Unknown, Verified 11/14/23 15:37) HIVES ondansetron [From ZOFRAN ( HYDROCHLORIDE)] Adverse Reaction (Unknown, Verified 11/14/23 15:37) HIVES Medication List - Last Reconciled 11/14/23 by Deonna Diaz MD albuterol sulfate 90 mcg/actuation 2 puffs PO QID PRN alprazolam 0.25 mg PO DAILY PRN cholestyramine-aspartame 4 gram (Prevalite) 4 grams PO QIDACHS eflornithine 13.9% (Vaniqa) 1 appl topical BID hydroxyzine HCl 25 mg PO BEDTIME magnesium oxide 400 mg PO DAILY metformin 500 mg PO BID 90 days propranolol 10 mg PO BID sumatriptan succinate (Imitrex) 50 mg PO .QD PRN tirzepatide 7.5 mg (0.5 mL) subcut QWEEK 1 month valacyclovir 500 mg PO DAILY 30 days zolpidem 5 mg PO BEDTIME PRN 30 days Tobacco use date assessed: 11/14/23 Dental Screening Dental Screen Date: 08/12/23 HPI 3mth f/u HPI Details 38-year-old obese female with generalized anxiety disorder coming in for follow-up. Last seen in July 2023. doing good , ears blocked feeling - recently had norovirus but better now. Patient needs refill on sleeping medication. Hydroxyzine not so much helping and feels that the zolpidem is better. [facility] Medical History Anxiety Asthma Fatty liver Insomnia Migraine Obesity (BMI 30-39.9) PCOS (polycystic ovarian syndrome) Surgical History History of hemorrhoidectomy History of wisdom tooth extraction History of placement of ear tubes History of ankle surgery History of cholecystectomy Family History (Updated 11/14/23 @ 15:35 by RAHEL Abbasi) Father Denison's disease Diabetes Hypertension Depression Mother No problems noted. Maternal Grandmother Cancer Depression Leukemia Maternal Grandfather Atherosclerosis CAD (coronary artery disease) Family/Other Alcoholism Social History Housing: House Alcohol intake: current Alcohol intake frequency: holidays/special occasions only Patient Tobacco Use Status: Never used Tobacco e-Cigarette/Vaping Use: Never Used Second Hand Smoke Exposure: No service: No Current occupational status: employed Cognitive needs: No Hearing needs: No Vision needs: Yes Questionnaire PHQ-9 Over the last 2 weeks, how often have you been bothered by any of the following problems? 1. Little interest or pleasure in doing things: not at all 2. Feeling down, depressed, or hopeless: not at all 3. Trouble falling or staying asleep, or sleeping too much: not at all 4. Feeling tired or having little energy: not at all 5. Poor appetite or overeating: not at all 6. Feeling bad about yourself - or that you are a failure or have let yourself or your family down: not at all 7. Trouble concentrating on things, such as reading the newspaper or watching television: not at all 8. Moving or speaking so slowly that other people could have noticed. Or the opposite - being so fidgety or restless that you have been moving around a lot more than usual: not at all 9. Thoughts that you would be better off or of hurting yourself in some way: not at all Total score: 0 Depression Screening Interpretation: Negative Depression Screening Done: Yes Source: Developed by Drs. Jeet Rosales, Mariah Mayen, Nilesh Siddiqui and colleagues, with an educational nehemiah from [employer] Thrive Questionnaire Date Thrive assessed: 11/14/23 I am a: Patient What is your living situation today?: I have a steady place to live Within the past 12 months, did the food you bought not last and you didn't have the money to get more?: Never true Within the past 12 months, did you worry whether your food would run out before you got money to buy more?: Never true Do you have trouble paying for medicines?: No Do you have trouble getting transportation to medical appointments?: No Do you have trouble paying your heating and electricity bill?: No Do you have trouble taking care of your child, family member or friend?: No Do you have trouble with day-to-day activities such as bathing, preparing meals, shopping, managing finances, etc.?: No Are you currently unemployed and looking for a job?: No Are you interested in more education?: No Currently or been in a relationship where the following occur: no concerns reported THRIVE Score: 0 AUDIT C Alcohol Use Questionnaire (AUDIT-C) 1. How often do you have a drink containing alcohol?: Monthly or less 2. How many drinks containing alcohol do you have on a typical day when you are drinking?: 1 or 2 Total Score: 1 NAVJOT-7 AMB Questionnaire NAVJOT-7 Date NAVJOT - 7 assessed: 08/12/23 Source: Developed by Drs. Jeet Rosales, Mariah Mayen, Nilesh Siddiqui and colleagues, with an educational nehemiah from [employer] Physical exam (Primary Care) BMI result Body Mass Index 32.6 Tobacco/Smoking Status: Tobacco use Status Tobacco use date assessed 08/12/23 08/12/23 16:10 Patient Tobacco Use Status Never used Tobacco 08/12/23 16:10 e-Cigarette/Vaping Use Never Used 08/12/23 16:10 Depression Screening Interpretation: Negative Thrive Assessment: Date of Thrive Assessment Date Thrive assessed 09/11/22 08/12/23 16:10 Currently or been in a relationship where the following occur: no concerns reported Const General: alert; No acute distress Eyes Conjunctivae: conjunctivae normal Resp Auscultation: clear to auscultation bilaterally Cardio Rate: regular rate Rhythm: regular rhythm GI Inspection: Yes normal to inspection Extrem General: Yes normal to inspection and No edema Assessment and Plan Assessment & Plan (1) Obesity (BMI 30-39.9): Code(s): E66.9 - Obesity, unspecified Plan: Diet and exercise (2) GERD (gastroesophageal reflux disease): Code(s): K21.9 - Gastro-esophageal reflux disease without esophagitis Plan: Avoid the foods that causes that usually spicy foods, tomato products, juices, coffee, soda and foods that your sensitive to. After eating do not lie down, allow 3-4 hours before in lie down. And keep the head of bed above 30 degrees to avoid the acid from going up. (3) Insomnia: Code(s): G47.00 - Insomnia, unspecified Qualifiers: Insomnia type: primary Qualified Code(s): F51.01 - Primary insomnia Plan: Continue with present medication (4) Migraine: Code(s): G43.909 - Migraine, unspecified, not intractable, without status migrainosus Qualifiers: Intractability: not intractable Migraine type: without aura Status migrainosus presence: without status migrainosus Qualified Code(s): G43.009 - Migraine without aura, not intractable, without status migrainosus Plan: Continue with present medication as needed Medications: New cholecalciferol (vitamin D3) 50 mcg PO DAILY 60 tabs 0RF Refilled valacyclovir 500 mg PO DAILY 30 days 90 tabs 3RF B00.1 - Herpesviral vesicular dermatitis zolpidem 5 mg PO BEDTIME 30 days PRN 30 tabs 1RF insomnia F51.01 - Primary insomnia Coding Level of Care Code Est Pt Level 4 (18831) Diagnoses Obesity (BMI 30-39.9) E66.9 GERD (gastroesophageal reflux disease) K21.9 Primary insomnia F51.01 Insomnia type: primary Migraine without aura and without status migrainosus, not intractable G43.009 Intractability: not intractable Migraine type: without aura Status migrainosus presence: without status migrainosus
[2023-11-14 15:37] VITALS: BP 110/64; PULSE 63; O2SAT 98; BMI 32.6
== END 2023-11-14 16:02 | disposition home or self-care (01) ==
PROVIDERS: PCP Internal Medicine; Visit Provider Internal Medicine
DX: K21.9 Gastro-esophageal reflux disease without esophagitis (principal); E66.9 Obesity, unspecified; F51.01 Primary insomnia; Z68.32 Body mass index [BMI] 32.0-32.9, adult; G43.009 Migraine without aura, not intractable, without status migrainosus
CPT/HCPCS: 99214

== ENCOUNTER 2024-04-02 13:49 | Outpatient (AMB) | payer OTHER, SELFPAY ==
[2024-04-02 14:01] VITALS: BP 122/70; PULSE 74; O2SAT 99; BMI 31.6
--- NOTE | 2024-04-02 14:01 | MHC.PC.OV ---
Vital Signs 04/02/24 14:01 04/02/24 14:12 Height 5 ft 4 in Weight 184 lb BMI 31.6 BP 122/70 100/70 Blood Pressure Location Lt brachial Lt brachial Position Sitting Sitting Pulse 74 Pulse Source Pulse Oximeter Pulse Oximetry (%) 99 Oxygen Delivery Method Room Air Intake Visit Reasons: PE Commercial Management Accountant Required: No Accompanied by: Self / Same As Patient Allergies adhesive [ADHESIVE] Allergy (Unknown, Verified 04/02/24 14:03) RED RASH ITCH minocycline [MINOCYCLINE] Allergy (Unknown, Verified 04/02/24 14:03) HIVES omeprazole [From Prilosec] Allergy (Unknown, Verified 04/02/24 14:03) headache Penicillins [PENICILLINS] Allergy (Unknown, Verified 04/02/24 14:03) HIVES ondansetron [From ZOFRAN ( HYDROCHLORIDE)] Adverse Reaction (Unknown, Verified 04/02/24 14:03) HIVES Medication List - Last Reconciled 04/02/24 by Deonna Diaz MD albuterol sulfate 90 mcg/actuation 2 puffs PO QID PRN alprazolam 0.25 mg PO DAILY PRN cholecalciferol (vitamin D3) 50 mcg PO DAILY cholestyramine-aspartame 4 gram (Prevalite) 4 grams PO QIDACHS eflornithine 13.9% (Vaniqa) 1 appl topical BID hydroxyzine HCl 25 mg PO BEDTIME lifitegrast 5% (Xiidra) 1 drp ophthalmic (eye) BID magnesium oxide 400 mg PO DAILY metformin 500 mg PO BID 90 days propranolol 10 mg PO BID sumatriptan succinate (Imitrex) 50 mg PO .QD PRN tirzepatide 12.5 mg (0.5 mL) subcut QWEEK 4 weeks valacyclovir 500 mg PO DAILY 30 days zolpidem 5 mg PO BEDTIME PRN 30 days Tobacco use date assessed: 11/14/23 Dental Screening Dental Screen Date: 08/12/23 HPI PE HPI Details 38-year-old obese female with GERD insomnia migraines coming in for physical exam last seen in October 2023.. [facility] Medical History (Updated 04/02/24 @ 14:22 by Deonna Diaz MD) Right lateral epicondylitis Costochondritis Hypercalcemia Near syncope COVID-19 virus infection Headache Hyperbilirubinemia Recurrent cold sores Upper respiratory tract infection Left ankle sprain RUQ abdominal pain Facial rash Fatty liver Asthma Obesity (BMI 30-39.9) PCOS (polycystic ovarian syndrome) Migraine Anxiety Insomnia Surgical History History of hemorrhoidectomy History of wisdom tooth extraction History of placement of ear tubes History of ankle surgery History of cholecystectomy Family History (Updated 04/02/24 @ 14:18 by Deonna Diaz MD) Father Rock's disease Diabetes Hypertension Depression Mother No problems noted. Maternal Grandmother Depression Leukemia Uterine cancer Maternal Grandfather Atherosclerosis CAD (coronary artery disease) Family/Other Alcoholism Social History (Updated 04/02/24 @ 14:18 by Deonna Diaz MD) Housing: House Alcohol intake: current Alcohol intake frequency: holidays/special occasions only Comment: once q 2 month 2 drinks Patient Tobacco Use Status: Never used Tobacco e-Cigarette/Vaping Use: Never Used Second Hand Smoke Exposure: No service: No Current occupational status: employed Cognitive needs: No Hearing needs: No Vision needs: Yes Questionnaire PHQ-9 Over the last 2 weeks, how often have you been bothered by any of the following problems? 1. Little interest or pleasure in doing things: not at all 2. Feeling down, depressed, or hopeless: not at all 3. Trouble falling or staying asleep, or sleeping too much: not at all 4. Feeling tired or having little energy: not at all 5. Poor appetite or overeating: not at all 6. Feeling bad about yourself - or that you are a failure or have let yourself or your family down: not at all 7. Trouble concentrating on things, such as reading the newspaper or watching television: not at all 8. Moving or speaking so slowly that other people could have noticed. Or the opposite - being so fidgety or restless that you have been moving around a lot more than usual: not at all 9. Thoughts that you would be better off or of hurting yourself in some way: not at all Total score: 0 Depression Screening Interpretation: Negative Depression Screening Done: Yes Source: Developed by Drs. Jeet Rosales, Mariah Mayen, Nilesh Siddiqui and colleagues, with an educational nehemiah from [employer]. Thrive Questionnaire Date Thrive assessed: 11/14/23 AUDIT C Alcohol Use Questionnaire (AUDIT-C) 1. How often do you have a drink containing alcohol?: Monthly or less 2. How many drinks containing alcohol do you have on a typical day when you are drinking?: 1 or 2 Total Score: 1 NAVJOT-7 AMB Questionnaire NAVJOT-7 Date NAVJOT - 7 assessed: 08/12/23 Source: Developed by Drs. Jeet Rosales, Mariah Mayen, Nilesh Siddiqui and colleagues, with an educational nehemiah from [employer]. Review of Systems Const Denies poor appetite and Denies weakness Eyes Denies no additional complaints ENT Reports Normal hearing present, Denies dizziness, Denies nasal congestion, Denies tinnitus and Denies sore throat Card Denies chest pain, Denies syncope, Denies rapid heart rate and Denies dyspnea Resp Denies cough and Denies dyspnea GI Denies change in stool character, Reports constipation, Denies diarrhea, Denies nausea and Denies vomiting Denies urinary frequency, Denies difficulty voiding and Denies dysuria Neuro Reports Normal hearing present, Denies confusion, Denies dizziness, Denies syncope and Denies weakness Psych Denies confusion Physical exam (Primary Care) Vital Signs: Last Vital Signs Pulse 74 04/02/24 14:01 BP 122/70 04/02/24 14:01 Pulse Ox 99 04/02/24 14:01 Oxygen Delivery Method Room Air 04/02/24 14:01 BMI result Body Mass Index 31.6 Tobacco/Smoking Status: Tobacco use Status Tobacco use date assessed 11/14/23 04/02/24 14:04 Patient Tobacco Use Status Never used Tobacco 04/02/24 14:04 e-Cigarette/Vaping Use Never Used 04/02/24 14:04 PHQ-9: PHQ-9 Score PHQ-9: Total score 0 04/02/24 14:06 Depression Screening Interpretation: Negative Thrive Assessment: Date of Thrive Assessment Date Thrive assessed 11/14/23 04/02/24 14:04 Const General: No confusion Orientation/consciousness: No confusion HENMT Head: Yes normocephalic Ears: external ears normal and TM's normal bilaterally Face and sinus: Yes normal facial exam Mouth: moist mucous membranes Throat: Yes tonsils normal Eyes Conjunctivae: conjunctivae normal Pupils: Equal, round and reactive pupils present and Pupil accommodation reflex normal Direct Ophthalmoscopy: normal light reflex Neck Neck: No lymphadenopathy Thyroid: Thyroid normal Chest Chest palpation & inspection: normal inspection of the chest Resp Effort & Inspection: normal respiratory effort and no audible wheezes Auscultation: clear to auscultation bilaterally, no crackles, no wheezes and lung sounds not diminished Cardio Rate: regular rate Rhythm: regular rhythm Peripheral pulses: radial pulses present and dorsalis pedis present GI Palpation (GI): no masses Auscultation: normal bowel sounds and normoactive bowel sounds Rectal Exam - Female: deferred Skin General skin exam: no rashes or lesions noted Rashes: no rashes Neuro General: No confusion Cranial nerves: Yes Equal, round and reactive pupils present and Yes Normal hearing present Cognition (Neuro): normal cognition Gait exam (Neuro): Normal gait present Motor exam (neuro): 5/5 motor strength present throughout Deep tendon reflexes (DTR's): Right brachioradialis reflex intensity grade: 2+, Left brachioradialis reflex intensity grade: 2+, Right patellar reflex intensity grade: 2+ and Left patellar reflex intensity grade: 2+ Extrem General: No edema Assessment and Plan Assessment & Plan (1) Annual physical exam: Code(s): Z00.00 - Encounter for general adult medical examination without abnormal findings Plan: Patient is advised to eat healthy, keep well hydrated, keep active and have adequate sleep. (2) GERD (gastroesophageal reflux disease): Code(s): K21.9 - Gastro-esophageal reflux disease without esophagitis Plan: Avoid the foods that causes that usually spicy foods, tomato products, juices, coffee, soda and foods that your sensitive to. After eating do not lie down, allow 3-4 hours before in lie down. And keep the head of bed above 30 degrees to avoid the acid from going up. (3) Generalized anxiety disorder: Comment: decline referral for counselling for now 11/2022 Code(s): F41.1 - Generalized anxiety disorder Plan: Continue with present medication (4) Obesity (BMI 30.0-34.9): Code(s): E66.9 - Obesity, unspecified Plan: Diet and exercise. Continue with Zepbound (5) PCOS (polycystic ovarian syndrome): Code(s): E28.2 - Polycystic ovarian syndrome Plan: On metformin (6) Dysphagia: Code(s): R13.10 - Dysphagia, unspecified Orders: Orders FL barium swallow Today R13.10 - Dysphagia, unspecified FL upper GI series Today R13.10 - Dysphagia, unspecified Coding Level of Care Code Est Pt Prev Care 18-39y(63763) Diagnoses Annual physical exam Z00.00 GERD (gastroesophageal reflux disease) K21.9 Generalized anxiety disorder F41.1 Obesity (BMI 30.0-34.9) E66.9 PCOS (polycystic ovarian syndrome) E28.2 Dysphagia R13.10
[2024-04-02 14:12] VITALS: BP 100/70
== END 2024-04-02 14:36 | disposition home or self-care (01) ==
PROVIDERS: PCP Internal Medicine; Visit Provider Internal Medicine
DX: Z00.00 Encounter for general adult medical examination without abnormal findings (principal); K21.9 Gastro-esophageal reflux disease without esophagitis; F41.1 Generalized anxiety disorder; E28.2 Polycystic ovarian syndrome; R13.10 Dysphagia, unspecified
CPT/HCPCS: 99395

== ENCOUNTER 2024-07-02 08:25 | Outpatient (REF) | payer OTHER, SELFPAY ==
--- NOTE | ~2024-07-02 | FL_ITS ---
EXAMINATION: XR FLUOROSCOPY UPPER GI WITH AIR CLINICAL INFORMATION: Dysphagia. COMPARISON: None TECHNIQUE: Fluoroscopic air contrast upper GI examination was performed utilizing standard techniques with thin and thick barium and effervescent granules. Numerous spot images were obtained. FINDINGS: Lateral cine images of the oropharynx and hypopharynx demonstrate normal swallow mechanism with normal epiglottic inversion and soft palate elevation. No tracheal penetration, glottic or subglottic aspiration identified. No nasopharyngeal reflux present. Hypopharyngeal structures appear normal without evidence of mass or diverticulum. There was no significant cricopharyngeal achalasia. Dual and single contrast images of the esophagus demonstrate normal caliber, contour, and mucosal pattern. No evidence of stricture, mass, or ulcerations identified. Esophageal peristalsis is mildly disorganized. No evidence of hiatus hernia identified. Gastroesophageal reflux is seen up to the thoracic inlet. Dual contrast and single contrast images of the stomach demonstrated a normal contour. The areae gastrica have a thickened appearance, suggestive of gastritis. There is a mixed density within the stomach that moves during positioning, that likely represents retained food. No masses or ulcerations are seen. Contrast freely passed into the gastric antrum and duodenal bulb without delay. Single and air-contrast images of the duodenal bulb demonstrate no abnormality. The duodenal sweep has a normal appearance, course, and mucosal fold appearance. The imaged proximal jejunum has a normal fold pattern and caliber. FLUOROSCOPY TIME: 3 minutes 53 seconds Number of Spot Images: 5 Number of Cine: 14 DOSE AREA PRODUCT: [id number] uGy-m2 (microgray-meter squared) FL/FL upper GI w air w Ba Swallow IMPRESSION: 1. Mildly disorganized esophageal peristalsis. 2. Moderate gastroesophageal reflux. 3. Appearance of the areae gastrica, suggestive of gastritis. 4. Mixed density within the stomach that moves during positioning, likely represents retained food. This procedure was performed by Ilya De Leon PA-C, and supervised by Dr. Mar Electronically signed by: Marcell Mar MD 07/02/2024 03:49 PM [facility] [place]
== END 2024-07-02 08:26 | disposition home or self-care (01) ==
LOC: HO.XRAY 08:25
PROVIDERS: PCP Internal Medicine; Visit Provider Internal Medicine
DX: R13.10 Dysphagia, unspecified (principal)
CPT/HCPCS: 74246

== ENCOUNTER → 2024-07-02 08:28 | Outpatient (BNV) | payer OTHER, SELFPAY | PROVIDERS: PCP Internal Medicine; Visit Provider Physician Assistant Surgical | DX: R13.10 Dysphagia, unspecified (principal) | CPT/HCPCS: 74246 ==

== ENCOUNTER 2024-07-23 16:00 | Outpatient (AMB) | payer OTHER, SELFPAY ==
[2024-07-23 16:05] VITALS: BP 110/74; PULSE 74; O2SAT 97; BMI 31.1
--- NOTE | 2024-07-23 16:05 | MHC.PC.OV ---
Vital Signs 07/23/24 16:05 Height 5 ft 4 in Weight 181 lb 6 oz BMI 31.1 BP 110/74 Blood Pressure Location Lt brachial Position Sitting Pulse 74 Pulse Source Pulse Oximeter Pulse Oximetry (%) 97 Oxygen Delivery Method Room Air Intake Visit Reasons: navjot, gerd Allergies adhesive [ADHESIVE] Allergy (Unknown, Verified 07/23/24 16:08) RED RASH ITCH minocycline [MINOCYCLINE] Allergy (Unknown, Verified 07/23/24 16:08) HIVES omeprazole [From Prilosec] Allergy (Unknown, Verified 07/23/24 16:08) headache Penicillins [PENICILLINS] Allergy (Unknown, Verified 07/23/24 16:08) HIVES ondansetron [From ZOFRAN ( HYDROCHLORIDE)] Adverse Reaction (Unknown, Verified 07/23/24 16:08) HIVES Tobacco use date assessed: 07/23/24 Dental Screening Dental Screen Date: 07/23/24 Did you have a dental visit in the last 12 months?: No Did you have a dental problem in the last 6 months where you did not have access to dental care?: No Was dental information given to patient?: Patient has dentist HPI navjot, gerd HPI Details The patient is a 38-year-old female presenting with symptoms of dry eyes and gastrointestinal issues potentially related to medication use. The patient reports having dry patches on her eyes, for which her eye doctor recommended evaluation for Sj?gren's Syndrome. She underwent a barium swallow test and an eye examination as part of her assessment. Previous attempts to address her dry eyes include tear production tests and procedures to keep tears in her eyes longer, but the cause remains unclear. In addition, the patient has a history of using terzepetide, a medication known to slow digestion, leading to gastrointestinal symptoms like moderate gastroesophageal reflux and gastritis. This was confirmed through tests showing mildly disorganized esophageal peristalsis and retained food in the stomach. The patient was advised to consume smaller meals to mitigate the reflux and prevent inflammation due to the medication's effects. She has been prescribed famotidine for her gastric symptoms, which she has found helpful. [facility] Medical History (Updated 07/23/24 @ 16:25 by Deonna Diaz MD) GERD (gastroesophageal reflux disease) Right lateral epicondylitis Costochondritis Hypercalcemia Near syncope COVID-19 virus infection Headache Hyperbilirubinemia Recurrent cold sores Upper respiratory tract infection Left ankle sprain RUQ abdominal pain Facial rash Fatty liver Asthma Obesity (BMI 30-39.9) PCOS (polycystic ovarian syndrome) Migraine Anxiety Insomnia Surgical History History of hemorrhoidectomy History of wisdom tooth extraction History of placement of ear tubes History of ankle surgery History of cholecystectomy Family History Father [place]'s disease Diabetes Hypertension Depression Mother No problems noted. Maternal Grandmother Depression Leukemia Uterine cancer Maternal Grandfather Atherosclerosis CAD (coronary artery disease) Family/Other Alcoholism Social History Housing: House Alcohol intake: current Alcohol intake frequency: holidays/special occasions only Comment: once q 2 month 2 drinks Patient Tobacco Use Status: Never used Tobacco e-Cigarette/Vaping Use: Never Used Second Hand Smoke Exposure: No service: No Current occupational status: employed Cognitive needs: No Hearing needs: No Vision needs: Yes Questionnaire PHQ-9 Over the last 2 weeks, how often have you been bothered by any of the following problems? 1. Little interest or pleasure in doing things: not at all 2. Feeling down, depressed, or hopeless: not at all 3. Trouble falling or staying asleep, or sleeping too much: not at all 4. Feeling tired or having little energy: not at all 5. Poor appetite or overeating: not at all 6. Feeling bad about yourself - or that you are a failure or have let yourself or your family down: not at all 7. Trouble concentrating on things, such as reading the newspaper or watching television: not at all 8. Moving or speaking so slowly that other people could have noticed. Or the opposite - being so fidgety or restless that you have been moving around a lot more than usual: not at all 9. Thoughts that you would be better off or of hurting yourself in some way: not at all Total score: 0 Depression Screening Interpretation: Negative Depression Screening Done: Yes Source: Developed by Drs. Jeet Rosales, Mariah Mayen, Nilesh Siddiqui and colleagues, with an educational nehemiah from [employer]. Thrive Questionnaire Date Thrive assessed: 07/23/24 I am a: Patient What is your living situation today?: I have a steady place to live Within the past 12 months, did the food you bought not last and you didn't have the money to get more?: Never true Within the past 12 months, did you worry whether your food would run out before you got money to buy more?: Never true Do you have trouble paying for medicines?: No Do you have trouble getting transportation to medical appointments?: No Do you have trouble paying your heating and electricity bill?: No Do you have trouble taking care of your child, family member or friend?: No Do you have trouble with day-to-day activities such as bathing, preparing meals, shopping, managing finances, etc.?: No Are you currently unemployed and looking for a job?: No Are you interested in more education?: No THRIVE Score: 0 AUDIT C Alcohol Use Questionnaire (AUDIT-C) 1. How often do you have a drink containing alcohol?: Monthly or less 2. How many drinks containing alcohol do you have on a typical day when you are drinking?: 1 or 2 3. How often do you have six or more drinks on one occasion?: Never Total Score: 1 NAVJOT-7 AMB Questionnaire NAVJOT-7 Date NAVJOT - 7 assessed: 07/23/24 Feeling nervous, anxious, or on edge: 0 = Not at all Not being able to stop or control worryin = Not at all Worrying too much about different things: 0 = Not at all Trouble relaxin = Not at all Being so restless that it is hard to sit still: 0 = Not at all Becoming easily annoyed or irritable: 0 = Not at all Feeling afraid as if something awful might happen: 0 = Not at all Total NAVJOT-7 score (0-4 normal; 5-9 mild; 10-14 moderate; 15-21 severe): 0 Source: Developed by Drs. Jeet Rosales, Mariah Mayen, Nilesh Siddiqui and colleagues, with an educational nehemiah from [employer]. Physical exam (Primary Care) Vital Signs: Last Vital Signs Pulse 74 07/23/24 16:05 BP 110/74 07/23/24 16:05 Pulse Ox 97 07/23/24 16:05 Oxygen Delivery Method Room Air 07/23/24 16:05 BMI result Body Mass Index 31.1 Tobacco/Smoking Status: Tobacco use Status Tobacco use date assessed 07/23/24 07/23/24 16:09 Patient Tobacco Use Status Never used Tobacco 07/23/24 16:09 e-Cigarette/Vaping Use Never Used 07/23/24 16:09 PHQ-9: PHQ-9 Score PHQ-9: Total score 0 07/23/24 16:18 Depression Screening Interpretation: Negative Thrive Assessment: Date of Thrive Assessment Date Thrive assessed 07/23/24 07/23/24 16:09 Const General: alert; No acute distress Eyes Conjunctivae: conjunctivae normal Resp Auscultation: clear to auscultation bilaterally Cardio Rate: regular rate Rhythm: regular rhythm GI Inspection: Yes normal to inspection Extrem General: Yes normal to inspection and No edema Coding Level of Care Code Est Pt Level 4 (47518) Diagnoses GERD (gastroesophageal reflux disease) K21.9 Obesity (BMI 30.0-34.9) E66.9 PCOS (polycystic ovarian syndrome) E28.2 Dry eye syndrome H04.129 Assessment & Plan Assessment & Plan (1) GERD (gastroesophageal reflux disease): Code(s): K21.9 - Gastro-esophageal reflux disease without esophagitis Category: Medical (2) Obesity (BMI 30.0-34.9): Code(s): E66.9 - Obesity, unspecified Category: Medical (3) PCOS (polycystic ovarian syndrome): Code(s): E28.2 - Polycystic ovarian syndrome Category: Medical (4) Dry eye syndrome: Code(s): H04.129 - Dry eye syndrome of unspecified lacrimal gland Category: Medical Plan - For suspected Sj?gren's Syndrome, perform antibody testing specific to the condition and continue the patient's current treatment with Zydra eye drops for symptomatic relief. - Manage Gastroesophageal Reflux Disease GERD) with continued use of famotidine as it is better suited for long-term use compared to omeprazole. Advise small, frequent meals to reduce reflux symptoms. Monitor for any ongoing gastrointestinal irritation. - Address gastritis symptoms with dietary modifications, including avoidance of lying down post-meal and minimizing irritant intake that might exacerbate gastric inflammation. - For esophageal dysmotility, inform the patient that the gastroesophageal effects are attributable to medication and highlight the importance of treatment adherence for current weight management. Suggest gradual reduction of terzepetide under supervision if considering discontinuation to manage weight independently. Orders: Orders Sjogren's Antibodies Today H04.129 - Dry eye syndrome of unspecified lacrimal gland Erythrocyte Sedimentation Rate Today H04.129 - Dry eye syndrome of unspecified lacrimal gland C Reactive Protein Today H04.129 - Dry eye syndrome of unspecified lacrimal gland TOOTIE Reflex Titer and Pattern Today H04.129 - Dry eye syndrome of unspecified lacrimal gland, R79.89 - Other specified abnormal findings of blood chemistry Complete Blood Count Auto Diff Today H04.129 - Dry eye syndrome of unspecified lacrimal gland Comprehensive Met. Panel Today H04.129 - Dry eye syndrome of unspecified lacrimal gland Medications: Refilled famotidine (Pepcid) 20 mg PO BID 60 tabs 3RF K21.9 - Gastro-esophageal reflux disease without esophagitis alprazolam 0.25 mg PO DAILY PRN 14 tabs 2RF anxiety F41.9 - Anxiety disorder, unspecified
== END 2024-07-23 16:32 | disposition home or self-care (01) ==
PROVIDERS: PCP Internal Medicine; Visit Provider Internal Medicine
DX: K21.9 Gastro-esophageal reflux disease without esophagitis (principal); E66.9 Obesity, unspecified; E28.2 Polycystic ovarian syndrome; Z68.31 Body mass index [BMI] 31.0-31.9, adult; H04.129 Dry eye syndrome of unspecified lacrimal gland

== ENCOUNTER → 2024-07-23 16:00 | Outpatient (BNVA) | payer OTHER, SELFPAY | PROVIDERS: PCP Internal Medicine; Visit Provider Internal Medicine ==

== ENCOUNTER 2024-08-23 07:39 | Outpatient (REF) | payer OTHER, SELFPAY ==
--- OUTSIDE RECORDS SUMMARY | 2024-08-23 07:43 | XMS_ITS | Clinical Summary ---
Author Organization [facility] Address [address] [place] [address] Care Team Providers Care Pharmaceutical Worker Name Role Phone Unavailable Primary Care Provider Unavailabl e Allergies Active Allergy Reactions Criticality Noted Date Comments Penicillins 06/06/2008 Immunizations Name Administration Dates Next Due Meningococcal ACWY (Menactra) 03/19/2005 Social History Tobacco Use Types Packs/Day Years Used Date Smoking Tobacco: Never Assessed Comments Unknown Sex and Gender Information Value Date Recorded Sex Assigned at Not on file Legal Sex Female 9:15 PM EDT Gender Identity Not on file Sexual Orientation Not on file Plan of Treatment Health Maintenance Due Date Last Done Comments Hepatitis C Screening 1984 Pap Smear 2000 DTaP/Tdap/Td (1 - Tdap) 2002 Hep B (1 of 3 - 19+ 3-dose series) 2003 COVID-19 Vaccine ( - 2023-2 5 season) 2024 Influenza (#1) 2024 Mammogram/Breast Imaging 2024 Zoster (Shingrix) (1 of 2) 2034 Meningococcal ACWY Aged Out 03/19/2005 No longer eligible based on patient's age to complete this topic HPV Vaccine Aged Out No longer eligi ble based on patient's age to complete this topic Hep A Aged Out No longer eligi ble based on patient's age to complete this topic Hib Aged Out No longer eligi ble based on patient's age to complete this topic Pneumococcal Aged Out No longer eligi ble based on patient's age to complete this topic Insurance BC[employer] FEE FOR SERVICE PPO
--- OUTSIDE RECORDS SUMMARY | 2024-08-23 07:43 | XMS_ITS | Clinical Summary ---
Author Organization [facility] ity Address [address] [place] [address] Care Team Providers Care Supplier Development Manager Name Role Phone Unavailable Primary Care Provider Unavailabl e Social History Tobacco Use Types Packs/Day Years Used Date Smoking Tobacco: Never Assessed Sex and Gender Information Value Date Recorded Sex Assigned at Not on file Gender Identity Not on file Sexual Orientation Not on file Plan of Treatment Health Maintenance Due Date Last Done Comments Breast Cancer Screening 1984 DTaP,Tdap,and Td Vaccines (1 - Tdap) 2003 Hepatitis B Vaccines (1 of 3 - 19+ 3-dose series) 2003 Cervical Cancer Screening: P ap Smear 2005 Depression Screening 07/04/2022 HIV Screening 07/04/2022 Hepatitis C Screening 07/04/2022 Social Influencers of Health Screening 07/04/2022 COVID-19 Vaccine (2023-2 5 season) 2024 Influenza Vaccine (#1) 2024 HIB Vaccines Aged Out No longer eligi ble based on patient's age to complete this topic HPV Vaccines Aged Out No longer eligi ble based on patient's age to complete this topic Hepatitis A Vaccines Aged Out No long er eligible based on patient's age to complete this topic IPV Vaccines Aged Out No longer eligi ble based on patient's age to complete this topic MMR Vaccines Aged Out No longer eligi ble based on patient's age to complete this topic Meningococcal ACWY Vaccine Aged Out N o longer eligible based on patient's age to complete this topic Pneumococcal Vaccine: Pediat rics (0 to 5 Years) and At-Risk Patients (6 to 64 Years) Aged Out No longer eligible b ased on patient's age to complete this topic RSV Immunization Patients Un bharti 20 months Aged Out No longer eligible b ased on patient's age to complete this topic Varicella Vaccines Aged Out No longer eligible based on patient's age to complete this topic
[2024-08-23 07:53] LABS: MANUAL DIFF FLAG NO
[2024-08-23 08:07] LABS: Basophils Absolute Auto 0.1 X10*3/uL (0.0-0.2); Basophils Percent Auto 0.7 % (0-2); Eosinophils Absolute Auto 0.1 X10*3/uL (0.0-0.4); Eosinophils Percent Auto 1.2 % (0-4); Hemoglobin 13.6 g/dl (12.0-16.0); Imm Gran Abs Auto 0.02 X10*3/uL (0.00-0.03); Imm Gran Pct Auto 0.2 % (0.0-0.4); Lymphocytes Absolute Auto 2.2 X10*3/uL (1.2-4.9); Lymphocytes Percent Auto 26.4 % (20-40); Mean Corpuscular HGB Conc 33.2 g/dl (31.0-35.0); Mean Corpuscular Hemoglobin 28.5 pg (27.0-33.0); Mean Corpuscular Volume 85.8 fL (80.0-98.0); Monocytes Absolute Auto 0.7 X10*3/uL (0.1-1.2); Monocytes Percent Auto 7.9 % (2-11); Neutrophils Absolute Auto 5.4 x10*3/uL (2.0-8.3); Neutrophils Percent Auto 63.6 % (45-73); Platelet Count 330 X10*3/uL (160-400); Red Blood Count 4.78 X10*6/uL (4.20-5.50); Red Cell Distribution Width 13.2 % (11.0-16.0); White Blood Count 8.5 X10*3/uL (4.8-10.8)
[2024-08-23 08:44] LABS: Alanine Aminotransferase 20 U/L (0-31); Albumin Level 4.4 g/dL (3.5-5.0); Alkaline Phosphatase 62 U/L (39-117); Anion Gap 13 (12-20); Aspartate Amino Transferase 15 U/L (5-31); Bilirubin Total 1.6 mg/dL (0.0-1.0); Blood Urea Nitrogen 13 mg/dL (9-16); C Reactive Protein < 0.10 mg/dL (< or = 0.50); Calcium 9.3 mg/dL (8.4-10.2); Carbon Dioxide 23 mmol/L (22-29); Chloride 106 mmol/L (96-108); Erythrocyte Sedimentation Rate 5 MM/HR (0-20); Estimated Glomerular Filt Rate > 60; Glucose Random 106 mg/dL (60-115); Potassium 3.7 mmol/L (3.3-5.1); Sodium 138 mmol/L (135-145); Total Protein 7.3 g/dL (6.5-8.0)
[2024-08-24 21:37] LABS: Antibody to SS-A Antigen <1.0 NEG AI (<1.0 NEG); Antibody to SS-B Antigen <1.0 NEG AI (<1.0 NEG)
[2024-08-30 11:07] LABS: Anti Nuclear Antibody Screen POSITIVE (NEGATIVE)
== END 2024-08-23 07:40 | disposition home or self-care (01) ==
LOC: HO.LAB 07:39
PROVIDERS: PCP Internal Medicine; Visit Provider Internal Medicine
DX: H04.129 Dry eye syndrome of unspecified lacrimal gland (principal); R79.89 Other specified abnormal findings of blood chemistry
CPT/HCPCS: 36415; 80053; 85025; 85652; 86038; 86039; 86140; 86235

== ENCOUNTER 2024-10-29 16:01 | Outpatient (AMB) | payer OTHER, SELFPAY ==
--- OUTSIDE RECORDS SUMMARY | 2024-10-29 16:03 | XMS_ITS ---
Author Name [facility] Organization Unknown Care Team Organization Name Specialty Phone Email Start Date End Da sandra [facility] 09/20/2022 06/21/2024
--- OUTSIDE RECORDS SUMMARY | 2024-10-29 16:04 | XMS_ITS | Clinical Summary ---
Author Organization [facility] [address] ity Address [address] [place] [address] Care Team Providers Care Developer Advisor Name Role Phone Unavailable Primary Care Provider Unavailabl e Social History Tobacco Use Types Packs/Day Years Used Date Smoking Tobacco: Never Assessed Comments Unknown Sex and Gender Information Value Date Recorded Sex Assigned at Not on file Legal Sex Female 3:36 AM EST Gender Identity Not on file Sexual Orientation [...] Influencers of Health Screening 07/04/2022 COVID-19 Vaccine ( - 2023-2 5 season) 2024 Influenza Vaccine (Season Ended) 2025 HIB Vaccines Aged Out No longer eligi [...] patient's age to complete this topic Meningococcal B Vaccine Aged Out No l onger eligible based on patient's age to complete [...]
[2024-10-29 16:08] VITALS: BP 124/68; PULSE 76; O2SAT 98; BMI 27.3
--- NOTE | 2024-10-29 16:08 | A.OFFPC_ITS ---
Vital Signs 10/29/24 16:08 Height 5 ft 4 in Weight 159 lb BMI 27.3 BP 124/68 Blood Pressure Location Lt brachial Position Sitting Pulse 76 Pulse Source Pulse Oximeter Pulse Oximetry (%) 98 Oxygen Delivery Method Room Air Intake Visit Reasons: NAVJOT, gerd Allergies adhesive [ADHESIVE] Allergy (Unknown, Verified 10/29/24 16:09) RED RASH ITCH minocycline [MINOCYCLINE] Allergy (Unknown, Verified 10/29/24 16:09) HIVES omeprazole [From Prilosec] Allergy (Unknown, Verified 10/29/24 16:09) headache Penicillins [PENICILLINS] Allergy (Unknown, Verified 10/29/24 16:09) HIVES ondansetron [From ZOFRAN ( HYDROCHLORIDE)] Adverse Reaction (Unknown, Verified 10/29/24 16:09) HIVES Tobacco use date assessed: 07/23/24 Dental Screening Dental Screen Date: 07/23/24 [facility] Medical History (Updated 10/29/24 @ 16:34 by Deonna Diaz MD) GERD (gastroesophageal reflux disease) Right lateral epicondylitis Costochondritis Hypercalcemia Near syncope COVID-19 virus infection Headache Hyperbilirubinemia Recurrent cold sores Upper respiratory tract infection Left ankle sprain RUQ abdominal pain Facial rash Fatty liver Asthma Obesity (BMI 30-39.9) PCOS (polycystic ovarian syndrome) Migraine Anxiety Insomnia Surgical History History of hemorrhoidectomy History of wisdom tooth extraction History of placement of ear tubes History of ankle surgery History of cholecystectomy Family History Father Rock's disease Diabetes Hypertension Depression Mother No problems noted. Maternal Grandmother Depression Leukemia Uterine cancer Maternal Grandfather Atherosclerosis CAD (coronary artery disease) Family/Other Alcoholism Social History Housing: House Alcohol intake: current Alcohol intake frequency: holidays/special occasions only Comment: once q 2 month 2 drinks Patient Tobacco Use Status: Never used Tobacco Tobacco use type: Cigarette e-Cigarette/Vaping Use: Never Used Second Hand Smoke Exposure: No service: No Current occupational status: employed Cognitive needs: No Hearing needs: No Vision needs: Yes Questionnaire PHQ-9 Over the last 2 weeks, how often have you been bothered by any of the following problems? 1. Little interest or pleasure in doing things: not at all 2. Feeling down, depressed, or hopeless: not at all 3. Trouble falling or staying asleep, or sleeping too much: not at all 4. Feeling tired or having little energy: not at all 5. Poor appetite or overeating: not at all 6. Feeling bad about yourself - or that you are a failure or have let yourself or your family down: not at all 7. Trouble concentrating on things, such as reading the newspaper or watching television: not at all 8. Moving or speaking so slowly that other people could have noticed. Or the opposite - being so fidgety or restless that you have been moving around a lot more than usual: not at all 9. Thoughts that you would be better off or of hurting yourself in some way: not at all Total score: 0 Depression Screening Interpretation: Negative Depression Screening Done: Yes Source: Developed by Drs. Jeet Rosales, Nilesh Odonnell and colleagues, with an educational nehemiah from [employer]. Thrive Questionnaire Date Thrive assessed: 07/23/24 AUDIT C Alcohol Use Questionnaire (AUDIT-C) 1. How often do you have a drink containing alcohol?: Monthly or less 2. How many drinks containing alcohol do you have on a typical day when you are drinking?: 1 or 2 3. How often do you have six or more drinks on one occasion?: Never Total Score: 1 NAVJOT-7 AMB Questionnaire NAVJOT-7 Date NAVJOT - 7 assessed: 07/23/24 Source: Developed by Drs. Jeet Rosales, Nilesh Odonnell and colleagues, with an educational nehemiah from [employer]. Physical exam (Primary Care) Vital Signs: Last Vital Signs Pulse 76 10/29/24 16:08 BP 124/68 10/29/24 16:08 Pulse Ox 98 10/29/24 16:08 Oxygen Delivery Method Room Air 10/29/24 16:08 BMI result Body Mass Index 27.3 Tobacco/Smoking Status: Tobacco use Status Tobacco use date assessed 07/23/24 10/29/24 16:11 Patient Tobacco Use Status Never used Tobacco 10/29/24 16:11 Tobacco use type Cigarette 10/29/24 16:11 e-Cigarette/Vaping Use Never Used 10/29/24 16:11 PHQ-9: PHQ-9 Score PHQ-9: Total score 0 10/29/24 16:30 Depression Screening Interpretation: Negative Thrive Assessment: Date of Thrive Assessment Date Thrive assessed 07/23/24 10/29/24 16:11 Const General: alert; No acute distress Eyes Conjunctivae: conjunctivae normal Resp Auscultation: clear to auscultation bilaterally Cardio Rate: regular rate Rhythm: regular rhythm GI Inspection: Yes normal to inspection Extrem General: Yes normal to inspection and No edema Coding Level of Care Code Est Pt Level 4 (04288) Complex EM visit Add On G2211 Diagnoses Overweight (BMI 25.0-29.9) E66.3 Impaired glucose tolerance R73.02 Generalized anxiety disorder F41.1 GERD (gastroesophageal reflux disease) K21.9 PCOS (polycystic ovarian syndrome) E28.2 Primary insomnia F51.01 Insomnia type: primary Breast cancer screening by mammogram Z12.31 Assessment & Plan Assessment & Plan (1) Overweight (BMI 25.0-29.9): Code(s): E66.3 - Overweight Category: Medical Plan: Continue with diet and exercise on tirzepatide (2) Impaired glucose tolerance: Code(s): R73.02 - Impaired glucose tolerance (oral) Category: Medical Plan: Decrease the amount of carbohydrate intake, pasta, bread, rice and potatoes are all sugar and that is aside from all the sweet stuff, remember that fruits are good but they are Sweet also. (3) Generalized anxiety disorder: Comment: decline referral for counselling for now 11/2022 Code(s): F41.1 - Generalized anxiety disorder Category: Medical Plan: Continue with present medication (4) GERD (gastroesophageal reflux disease): Code(s): K21.9 - Gastro-esophageal reflux disease without esophagitis Category: Medical Plan: Avoid the foods that causes that usually spicy foods, tomato products, juices, coffee, soda and foods that your sensitive to. After eating do not lie down, allow 3-4 hours before in lie down. And keep the head of bed above 30 degrees to avoid the acid from going up. Patient on famotidine 20 mg twice a day (5) PCOS (polycystic ovarian syndrome): Code(s): E28.2 - Polycystic ovarian syndrome Category: Medical Plan: Patient on metformin 500 mg twice a day (6) Insomnia: Code(s): G47.00 - Insomnia, unspecified Category: Medical Qualifiers: Insomnia type: primary Qualified Code(s): F51.01 - Primary insomnia Plan: Continue with sleeping medication as needed (7) Breast cancer screening by mammogram: Code(s): Z12.31 - Encounter for screening mammogram for malignant neoplasm of breast Category: Medical Plan History of Present Illness The patient is a 39-year-old female presenting for a follow-up regarding ongoing management of Polycystic Ovary Syndrome (PCOS), Gastroesophageal Reflux Disease (GERD), and weight management as part of her diabetes management plan. During this visit, the primary focus was on the assessment of her current treatment plan and the progress made in managing chronic conditions. The patient has experienced a weight loss of 22 pounds through a combination of dietary adjustments and exercise, striving to reach a target weight of 140 pounds, deemed appropriate for her height of 5 feet 4 inches. Previous blood tests in August revealed normal results for blood count and electrolytes, with good renal and liver function but elevated blood glucose at 106 mg/dL, indicating the need for continued diabetes management. GERD is managed with famotidine, which has led to symptom improvement, though the condition requires ongoing monitoring due to potential exacerbation by medications affecting gastric motility. The patient diligently avoids eating close to bedtime to mitigate symptoms. The patient?s autoimmune panel returned a positive TOOTIE but negative for Sjogren's, with no significant symptoms of an autoimmune disorder such as joint swelling or oral ulcers. Anxiety disorder and migraine history also noted but were not the primary focus of this visit. Health Maintenance - Vaccinations are up to date; requires Tdap in 2025. - Mammogram screening planned upon referral from the [facility]. - Patient continues with regular exercise and dietary modifications for weight management. - Ongoing monitoring of blood glucose levels and adjustment of diabetes management plan as required. Social History - Employed in healthcare, conscious about staying current on vaccinations. - Engaged in regular physical activity and mindful of dietary intake to achieve weight goals. - Manages GERD by altering meal timing and medication adherence. Review of Systems - Gastrointestinal: Reports improvement in acid reflux symptoms, denies current bowel movement issues. - Genitourinary: Denies issues with urination. - Musculoskeletal: Denies joint swelling. - Endocrine: Reports ongoing dietary and exercise modifications. - Neurological: History of migraines. - Psychiatric: History of generalized anxiety disorder. Physical Exam Results - Labs: Elevated blood glucose at 106 mg/dL; previous Vitamin D deficiency. - Tests: TOOTIE positive; Sjogren's syndrome negative. Plan The management plan includes ongoing monitoring and treatment of Polycystic Ovary Syndrome with adherence to the diabetes management plan involving Tirzepa tide and Metformin. The patient is advised to continue her weight management efforts through diet and exercise. GERD symptoms have improved with famotidine and modifications in meal timing. Regular vitamin monitoring to be conducted with potential supplementation for Vitamin D. The patient will continue using sleep aids as necessary. Await results from the scheduled mammogram for routine screening. No further interventions needed at present. Patient was informed and verbally consented to the use of an ambient scribe for clinic note documentation during this visit. Discussion Notes I discussed in detail with the patient the current status and management plan for Polycystic Ovary Syndrome, GERD, and her elevated blood glucose level. We reviewed the benefits of her current regimen, including Tirzepatide and Metformin, along with the importance of her ongoing dietary and lifestyle changes. The patient expressed understanding of the GERD management strategy involving famotidine and timing of meals, which has shown symptom improvement. We discussed the implications of the positive TOOTIE and negative Sjogren's test results, reassuring the absence of significant autoimmune symptoms. Upcoming preventive screenings, including mammogram, were coordinated efficiently, emphasizing the importance of early detection and regular health maintenance. The patient consented to continue her current medication regimen and monitoring plan. Patient Instructions - Continue daily regimen of Tirzepatide and Metformin for managing elevated blood glucose. - Stay committed to the dietary and exercise plan for weight management goals. - Take famotidine 20 mg twice daily for GERD. Avoid eating three to four hours before bedtime. - Monitor any changes in symptoms and report worsening GERD symptoms. - Maintain routine health screenings, including the upcoming mammogram. - Follow up as planned in six months or sooner if symptoms worsen. Orders: Orders AMB Hemoglobin A1c Today Z13.9 - Encounter for screening, unspecified MM tomosynthesis screening BI Today Z12.31 - Encounter for screening mammogram for malignant neoplasm of breast
== END 2024-10-29 16:52 | disposition home or self-care (01) ==
LOC: HO.HMCH 16:02
PROVIDERS: PCP Internal Medicine; Visit Provider Internal Medicine
DX: E66.3 Overweight (principal); R73.02 Impaired glucose tolerance (oral); F41.1 Generalized anxiety disorder; K21.9 Gastro-esophageal reflux disease without esophagitis; E28.2 Polycystic ovarian syndrome; F51.01 Primary insomnia; Z12.31 Encounter for screening mammogram for malignant neoplasm of breast

== ENCOUNTER → 2024-10-29 16:01 | Outpatient (BNVA) | payer OTHER, SELFPAY | PROVIDERS: PCP Internal Medicine; Visit Provider Internal Medicine | DX: E66.3 Overweight (principal); R73.02 Impaired glucose tolerance (oral); F41.1 Generalized anxiety disorder; K21.9 Gastro-esophageal reflux disease without esophagitis; E28.2 Polycystic ovarian syndrome; F51.01 Primary insomnia; Z79.899 Other long term (current) drug therapy | CPT/HCPCS: 96127; 99212 ==

== ENCOUNTER 2024-12-24 16:28 | Outpatient (REF) | payer OTHER, SELFPAY | END 2024-12-24 16:29 | disposition home or self-care (01) | LOC: HO.MAMMO 16:28 | PROVIDERS: PCP Internal Medicine; Visit Provider Internal Medicine | DX: Z12.31 Encounter for screening mammogram for malignant neoplasm of breast (principal) | CPT/HCPCS: 77063; 77067 ==

== ENCOUNTER → 2024-12-24 16:30 | Outpatient (BNV) | payer OTHER, SELFPAY | PROVIDERS: PCP Internal Medicine; Visit Provider Internal Medicine | DX: Z12.31 Encounter for screening mammogram for malignant neoplasm of breast (principal) | CPT/HCPCS: 77063; 77067 ==

== ENCOUNTER 2025-02-10 12:28 | Outpatient (REF) | payer OTHER, SELFPAY ==
--- NOTE | ~2025-02-10 | US_ITS ---
EXAMINATION: MM DIAGNOSTIC DIGITAL BREAST TOMOSYNTHESIS, RIGHT Right limited ultrasound. CLINICAL INFORMATION: Call back from screening for focal asymmetry upper outer right breast posterior depth. COMPARISON: Mammography: Pri[facility] on PACS. TECHNIQUE: Digital breast tomosynthesis is performed in both the craniocaudal and mediolateral oblique views along with computer-aided detection (CAD). Synthesized 2D images are generated from the tomosynthesis. FINDINGS: There are scattered areas of fibroglandular density (ACR BI-RADS breast composition Category b). Focal asymmetry in the upper outer breast partially effaces on additional imaging projections. No suspicious calcifications or other abnormal findings. Targeted color Doppler ultrasound scanning in the upper outer quadrant demonstrates a hypoechoic oval circumscribed parallel solid mass versus complicated cyst at 9:00 8 cm from the nipple measuring 7 x 3 x 10 mm correlates with the focal asymmetry on mammography. US/US breast RT limited mamm only IMPRESSION: Probably benign hypoechoic oval solid mass versus complicated cyst at 9:00 8 cm from the nipple. Recommend 6 month follow-up ultrasound for further evaluation of stability. Probably benign. ASSESSMENT: BI-RADS BI-RADS 3 - Probably benign finding(s) - 6 month follow-up suggested RECOMMENDATION: 6 Month F/U Results were provided to the patient at time of visit by the technologist. This patient's information was entered into a reminder system with a target due date for their next mammogram. Electronically signed by: Kaylan Lynn DO 02/10/2025 01:41 PM EDT Workstation: [id number]
--- OUTSIDE RECORDS SUMMARY | 2025-02-10 12:51 | XMS_ITS | Clinical Summary ---
Author Organization [facility] Address [address] [place] [address] Care Team Providers Care Stitch Wheeler Name Role Phone Unavailable Primary Care Provider Unavailabl e Allergies Active Allergy Reactions Criticality Noted Date Comments Penicillins 06/06/2008 Immunizations Immunization Administration Dates Next Due Meningococcal ACWY (Menactra) [...] Vaccine ( - 2023-2 5 season) 2024 Mammogram/Breast Imaging 2024 Influenza (#1) 2025 Zoster (Shingrix) (1 of 2) 2034 Meningococcal [...]
--- OUTSIDE RECORDS SUMMARY | 2025-02-10 12:51 | XMS_ITS ---
Author Name [facility] Organization Unknown Care Team Organization Name Specialty Phone Email Start Date End Da sandra [facility] 09/20/2022 06/21/2024
--- OUTSIDE RECORDS SUMMARY | 2025-02-10 12:52 | XMS_ITS | Clinical Summary ---
Author Organization [facility] ity Address [address] [place] [address] Care Team Providers Care Senior Electronics Engineer Name Role Phone Unavailable Primary Care Provider [...] Cervical Cancer Screening: P ap Smear 2005 HIV Screening 07/04/2022 Hepatitis C Screening 07/04/2022 Social Influencers of Health Screening 07/04/2022 COVID-19 Vaccine ( - 2023-2 5 season) 2024 Depression Screening 07/21/2024 Influenza Vaccine (#1) 2025 HIB Vaccines Aged Out No longer [...] 5 Years) and At-Risk Patients (6 to 49 Years) Aged Out No longer eligible b ased on patient's age to complete this topic RSV Immunization Patients Un bharti 20 months Aged Out No longer eligible b ased on patient's age to complete this topic Varicella Vaccines Aged Out No longer eligible based on patient's age to complete this topic
== END 2025-02-10 12:29 | disposition home or self-care (01) ==
LOC: HO.MAMMO 12:28
PROVIDERS: PCP Internal Medicine; Visit Provider Internal Medicine
DX: N64.89 Other specified disorders of breast (principal)
CPT/HCPCS: 76642; 77061; 77065

== ENCOUNTER → 2025-02-10 12:30 | Outpatient (BNV) | payer OTHER, SELFPAY | PROVIDERS: PCP Internal Medicine; Visit Provider Internal Medicine | DX: N63.41 Unspecified lump in right breast, subareolar (principal) | CPT/HCPCS: 76642; 77061; 77065 ==